=== PATIENT | male | born 1970 | race Caucasian/White ===

== ENCOUNTER 2017-02-07 16:38 | Emergency (ER) | payer SELFPAY ==
[2017-02-07] MEDS ORDERED: NORMAL SALINE 1000 ML 1,000 ML IV ONE (17:31)
--- NOTE | 2017-02-07 17:34 | ER Document Report ---
ED Medical Screen (RME) - General Chief Complaint: Near Syncope Stated Complaint: BLOOD PRESSURE PROBLEM Time Seen by Provider: 02/07/17 17:24 Notes: Patient is a 46-year-old male, past medical history diabetes, neuropathy, presents with 2 hours of slurred speech and headache while on the phone with his that started at 15:15. Arrival to the emergency room, the patient's speech has returned back to normal. In addition, he has had several weeks of orthostasis feeling lightheaded when he stands. He has seen his epic ambulatory specialists for this, but he is still being worked up for causes. Patient denies blurry vision, focal weakness, new numbness, chest pain, shortness of breath, nausea, vomiting or back pain. PE: RRR. CTAB. No nystagmus. 5/5 strength in all 4 extremities. I have greeted and performed a rapid initial assessment of this patient. A comprehensive ED assessment and evaluation of the patient, analysis of test results and completion of the medical decision making process will be conducted by additional ED providers. TRAVEL OUTSIDE OF THE [place] IN LAST 30 DAYS: No - Related Data Allergies/Adverse Reactions: No Known Allergies Allergy (Verified 03/10/15 11:23) Past Medical History - Past Medical History Cardiac Medical History: Reports: Hx Hypercholesterolemia Endocrine Medical History: Reports: Hx Diabetes Mellitus Type 2 Renal/ Medical History: Denies: Hx Peritoneal Dialysis GI Medical History: Reports: Hx Gastroesophageal Reflux Disease Past Surgical History: Reports: Hx Orthopedic Surgery - back, left knee - Immunizations Hx Diphtheria, Pertussis, Tetanus Vaccination: Yes Physical Exam - Vital signs Vitals: Temp Pulse Resp BP Pulse Ox 98.0 F 90 19 114/80 96 02/07/17 16:42 02/07/17 16:42 02/07/17 16:42 02/07/17 16:42 02/07/17 16:42 Course - Vital Signs Vital signs: Temp Pulse Resp BP Pulse Ox 98.0 F 90 19 114/80 96 02/07/17 16:42 02/07/17 16:42 02/07/17 16:42 02/07/17 16:42 02/07/17 16:42
[2017-02-07 18:05] LABS: ABSOLUTE EOSINOPHILS # (AUTO) 0.1 10^3/uL (0.0-0.6); ABSOLUTE LYMPHOCYTES (AUTO) 1.7 10^3/uL (0.5-4.7); ABSOLUTE MONOCYTES (AUTO) 0.6 10^3/uL (0.1-1.4); ABSOLUTE NEUT (AUTO) 4.4 10^3/uL (1.7-8.2); BASOPHILS % (AUTO) 0.3 % (0-2); EOSINOPHILS % (AUTO) 1.2 % (0-6); HEMATOCRIT 36.9 % (37.9-51.0); HEMOGLOBIN 12.9 g/dL (13.5-17.0); HGB HCT DIFFERENCE 1.8; LYMPHOCYTES % (AUTO) 24.7 % (13-45); MEAN CORPUSCULAR HEMOGLOBIN 28.2 pg (27.0-33.4); MEAN CORPUSCULAR VOLUME 81 fl (80-97); MONOCYTES % (AUTO) 8.9 % (3-13); RED BLOOD COUNT 4.58 10^6/uL (4.35-5.55); RED CELL DISTRIBUTION WIDTH 12.7 % (11.5-14.0); SEGMENTED NEUTROPHILS % (AUTO) 64.9 % (42-78); WHITE BLOOD COUNT 6.8 10^3/uL (4.0-10.5)
--- NOTE | 2017-02-07 18:07 | RADIOLOGY REPORT (SQ) ---
EXAM DESCRIPTION: CT HEAD WITHOUT COMPLETED DATE/TIME: 02/07/2017 5:57 pm REASON FOR STUDY: slurred speech COMPARISON: None. TECHNIQUE: Axial images acquired through the brain without intravenous contrast. Images reviewed wi th bone, brain and subdural windows. Images stored on PACS. All CT scanners at this facility use dose modulation, iterative reconstruction, and/or weight based d osing when appropriate to reduce radiation dose to as low as reasonably achievable (ALARA). [facility]: Dose Right [facility]: CareDose [facility]: Dose Right [facility]: Teradose 4D [facility]: Smart OOTU RADIATION DOSE: Up-to-date CT equipment and radiation dose reduction techniques were employed. CTDIv ol: 64.6 mGy. DLP: 1034 mGy-cm. mGy. LIMITATIONS: None. FINDINGS: VENTRICLES: Normal size and contour. CEREBRUM: No masses. No hemorrhage. No midline shift. Normal mix/white matter differentiation. N o evidence for acute infarction. CEREBELLUM: No masses. No hemorrhage. No alteration of density. No evidence for acute infarction. EXTRAAXIAL SPACES: No fluid collections. No masses. ORBITS AND GLOBE: No intra- or extraconal masses. Normal contour of globe without masses. CALVARIUM: No fracture. PARANASAL SINUSES: Mucosal thickening of the inferior left maxillary sinus. The remainder the parana glenys sinuses are clear. SOFT TISSUES: No mass or hematoma. OTHER: No other significant finding. IMPRESSION: NORMAL BRAIN CT WITHOUT CONTRAST. TECHNICAL DOCUMENTATION: JOB ID: [id number] Quality ID # [id number]: Final reports with documentation of one or more dose reduction techniques (e.g., Au tomated exposure control, adjustment of the mA and/or kV according to patient size, use of iterative reconstruction technique) 2010 [employer]- All Rights Reserved
[2017-02-07 18:24] LABS: ALANINE AMINOTRANSFERASE 37 U/L (21-72); ALBUMIN 4.2 g/dL (3.5-5.0); ALCOHOL < 10 mg/dL (NONE DETECTED); ALKALINE PHOSPHATASE 100 U/L (38-126); ANION GAP 12 (5-19); ASPARTATE AMINO TRANSFERASE 24 U/L (17-59); BILIRUBIN,DIRECT 0.3 mg/dL (0.0-0.4); BILIRUBIN,TOTAL 0.7 mg/dL (0.2-1.3); BLOOD UREA NITROGEN 28 mg/dL (7-20); CALCIUM 9.8 mg/dL (8.4-10.2); CARBON DIOXIDE 37 mmol/L (22-30); CHLORIDE 89 mmol/L (98-107); CREATINE KINASE 137 U/L (55-170); CREATININE RESULT 1.57 mg/dL (0.52-1.25); GLUCOSE 341 mg/dL (75-110); LIPASE 45.2 U/L (23-300); POTASSIUM 3.6 mmol/L (3.6-5.0); SODIUM 137.5 mmol/L (137-145)
--- NOTE | 2017-02-07 18:30 | RADIOLOGY REPORT (SQ) ---
EXAM DESCRIPTION: CHEST SINGLE VIEW COMPLETED DATE/TIME: 02/07/2017 6:20 pm REASON FOR STUDY: chest pain COMPARISON: 03/10/2015 EXAM PARAMETERS: NUMBER OF VIEWS: One view. TECHNIQUE: Single frontal radiographic view of the chest acquired. RADIATION DOSE: NA LIMITATIONS: None. FINDINGS: LUNGS AND PLEURA: No opacities, masses or pneumothorax. No pleural effusion. MEDIASTINUM AND HILAR STRUCTURES: No masses. Contour normal. HEART AND VASCULAR STRUCTURES: Heart normal in size. Normal vasculature. BONES: No acute findings. HARDWARE: None in the chest. OTHER: No other significant finding. IMPRESSION: NO ACUTE RADIOGRAPHIC FINDING IN THE CHEST. TECHNICAL DOCUMENTATION: JOB ID: [id number]
[2017-02-07 18:35] LABS: TROPONIN I 0.013 ng/mL
[2017-02-07] MEDS ORDERED: NORMAL SALINE 1000 ML 1,000 ML IV PRN (18:58)
--- NOTE | 2017-02-07 19:00 | ER Document Report ---
ED General - General Chief Complaint: Near Syncope Stated Complaint: BLOOD PRESSURE PROBLEM Time Seen by Provider: 02/07/17 17:24 Mode of Arrival: Stretcher Information source: Patient TRAVEL OUTSIDE OF THE [place] IN LAST 30 DAYS: No - HPI Patient complains to provider of: Low blood pressure, near syncope Onset: Just prior to arrival Onset/Duration: Sudden, Intermittent Quality of pain: No pain Exacerbated by: Standing Relieved by: Denies Similar symptoms previously: Yes Recently seen / treated by doctor: Yes Notes: Patient is a 46-year-old male with history of diabetes, depression and high cholesterol, who presents to the emergency room complaining of dizziness and near syncope related to low blood pressure, reports the symptoms occur when he changes position such as lying down or sitting and going to a standing position , he states this is been going on intermittently for the past few years, he has been worked up by several providers previously without in definitive answer to why this occurs, he had a cardiac catheterization approximately 1 month ago which he was told was normal, he states he drinks water throughout the day and feels as though he is well hydrated, he denies any pain or symptoms at present time except for some mild dizziness which continues to worsen when he stands up - Related Data Allergies/Adverse Reactions: No Known Allergies Allergy (Verified 03/10/15 11:23) Past Medical History - General Information source: Patient - Social History Smoking Status: Never Smoker Frequency of alcohol use: Occasional Family History: Reviewed & Not Pertinent Patient has suicidal ideation: No Patient has homicidal ideation: No - Past Medical History Cardiac Medical History: Reports: Hx Hypercholesterolemia Endocrine Medical History: Reports: Hx Diabetes Mellitus Type 2 Renal/ Medical History: Denies: Hx Peritoneal Dialysis GI Medical History: Reports: Hx Gastroesophageal Reflux Disease Past Surgical History: Reports: Hx Orthopedic Surgery - back, left knee - Immunizations Hx Diphtheria, Pertussis, Tetanus Vaccination: Yes Review of Systems - Review of Systems Constitutional: No symptoms reported EENT: No symptoms reported Cardiovascular: See HPI Respiratory: No symptoms reported Gastrointestinal: No symptoms reported Genitourinary: No symptoms reported Male Genitourinary: No symptoms reported Musculoskeletal: No symptoms reported Skin: No symptoms reported Hematologic/Lymphatic: No symptoms reported Neurological/Psychological: No symptoms reported -: Yes All other systems reviewed and negative Physical Exam - Vital signs Vitals: Temp Pulse Resp BP Pulse Ox 98.0 F 90 19 114/80 96 02/07/17 16:42 02/07/17 16:42 02/07/17 16:42 02/07/17 16:42 02/07/17 16:42 Interpretation: Hypotensive - General General appearance: Appears well, Alert - HEENT Head: Normocephalic, Atraumatic Eyes: Normal Pupils: PERRL - Respiratory Respiratory status: No respiratory distress Chest status: Nontender Breath sounds: Normal Chest palpation: Normal - Cardiovascular Rhythm: Regular Heart sounds: Normal auscultation Murmur: No - Abdominal Inspection: Normal Distension: No distension Bowel sounds: Normal Tenderness: Nontender Organomegaly: No organomegaly - Back Back: Normal, Nontender - Extremities General upper extremity: Normal inspection, Nontender, Normal color, Normal ROM , Normal temperature General lower extremity: Normal inspection, Nontender, Normal color, Normal ROM , Normal temperature, Normal weight bearing. No: Dominick's sign - Neurological Neuro grossly intact: Yes Cognition: Normal Orientation: AAOx4 [place] Coma Scale Eye Opening: Spontaneous Al Coma Scale Verbal: Oriented Al Coma Scale Motor: Obeys Commands [place] Coma Scale Total: 15 Speech: Normal Motor strength normal: LUE, RUE, LLE, RLE Sensory: Normal - Psychological Associated symptoms: Normal affect, Normal mood - Skin Skin Temperature: Warm Skin Moisture: Dry Skin Color: Normal Course - Re-evaluation Re-evalutation: 02/07/17 19:50 Patient reports feeling much better after 2 L of IV fluids and dinner, lab and imaging findings were discussed with him at bedside which are fairly unremarkable except for mild dehydration, patient will be discharged with instructions for follow-up and advised to return if any additional concerns, patient acknowledges understanding and agreement with this plan - Vital Signs Vital signs: Temp Pulse Resp BP Pulse Ox 98.0 F 87 13 172/94 H 100 02/07/17 16:42 02/07/17 18:13 02/07/17 19:08 02/07/17 19:08 02/07/17 19:08 - Laboratory Result Diagrams: 02/07/17 17:48 02/07/17 17:48 Laboratory results interpreted by me: 02/07/17 02/07/17 02/07/17 17:48 17:48 17:48 Hgb 12.9 L Hct 36.9 L Chloride 89 L Carbon Dioxide 37 H BUN 28 H Creatinine 1.57 H Est GFR ( Amer) 57 L Est GFR (Non-Af Amer) 47 L Glucose 341 H NT-Pro-B Natriuret Pep 411 H - Diagnostic Test Radiology reviewed: Image reviewed, Reports reviewed - EKG Interpretation by Me EKG shows normal: Sinus rhythm Rate: Normal Rhythm: NSR Discharge - Discharge Clinical Impression: Near syncope Condition: Stable Disposition: HOME, SELF-CARE Instructions: Near Syncopal Episode ([facility]), Dehydration ([facility]) Additional Instructions: Follow up with your primary care provider in one to 2 days. Return to the emergency room immediately if symptoms worsen or any additional concerns.
[2017-02-07 20:40] VITALS: BP 140/81
--- NOTE | 2017-02-07 21:22 | EKG REPORT ---
SEVERITY:- BORDERLINE ECG - SINUS RHYTHM BORDERLINE T WAVE ABNORMALITIES : Confirmed by: Stephanie Wilson 07-Feb-2017 21:22:06
== END 2017-02-07 20:35 | disposition home or self-care (01) ==
LOC: ER 16:38
DX: R55 Syncope and collapse (principal); R03.0 Elevated blood-pressure reading, without diagnosis of hypertension; R42 Dizziness and giddiness
CPT/HCPCS: 93005; 99285; 96360; 36415; 80307; 82550; 83690; 85025; 80053; 84484; 83880; 71010; 70450; 93010; J7030

== ENCOUNTER 2017-03-19 13:10 | Inpatient (IN) | payer SELFPAY ==
--- NOTE | 2017-03-19 14:31 | ER Document Report ---
ED Dizziness/Weakness - General Chief Complaint: Weakness Stated Complaint: WEAKNESS,BODY PAIN Time Seen by Provider: 03/19/17 14:14 Notes: Patient is a 46-year-old male with past medical history of insulin-dependent diabetes who presents today with multiple complaints. Patient believes he has a right second toe infection that he states has been progressing for the last week and a half. Patient also states he had times for the last 2 years has felt "lightheaded". He states he is always told that it is secondary to his diabetes and dehydration. 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 Patient denies any headache, neck pain, chest pain, abdominal pain, or focal weakness or numbness. He states some mild nausea without vomiting. TRAVEL OUTSIDE OF THE [place] IN LAST 30 DAYS: No - HPI Patient complains to provider of: Dizziness, Other - See above Onset/Duration: Gradual Quality of pain: No pain Severity: Moderate Pain Level: 2 Associated symptoms: Other - See above Baseline gait: Walks w/o assistance - Related Data Allergies/Adverse Reactions: No Known Allergies Allergy (Verified 03/19/17 13:15) Past Medical History - General Information source: Patient - Social History Smoking Status: Unknown if Ever Smoked Cigarette use (# per day): No Chew tobacco use (# tins/day): No Smoking Education Provided: No Frequency of alcohol use: None Family History: Reviewed & Not Pertinent - Past Medical History Cardiac Medical History: Reports: Hx Hypercholesterolemia Endocrine Medical History: Reports: Hx Diabetes Mellitus Type 2 Renal/ Medical History: Denies: Hx Peritoneal Dialysis GI Medical History: Reports: Hx Gastroesophageal Reflux Disease Psychiatric Medical History: Reports: Hx Depression Past Surgical History: Reports: Hx Orthopedic Surgery - back, left knee - Immunizations Hx Diphtheria, Pertussis, Tetanus Vaccination: Yes Review of Systems - Review of Systems Constitutional: denies: Fever EENT: denies: Eye discharge, Nose discharge Cardiovascular: Dizziness. denies: Chest pain, Palpitations, Syncope Respiratory: denies: Short of breath Gastrointestinal: denies: Vomiting Genitourinary: denies: Dysuria Musculoskeletal: denies: Leg swelling Skin: Other - no hives. denies: Rash Neurological/Psychological: Other - no slurred speech -: Yes All other systems reviewed and negative Physical Exam - Vital signs Vitals: Temp Pulse Resp BP Pulse Ox 99.1 F 94 16 124/75 97 03/19/17 13:14 03/19/17 13:14 03/19/17 13:14 03/19/17 13:14 03/19/17 13:14 Interpretation: Normal Notes: Reviewed vital signs and nursing note as charted by RN. CONSTITUTIONAL: Alert and oriented and responds appropriately to questions. Well -appearing; well-nourished HEAD: Normocephalic; atraumatic EYES: PERRL; Conjunctivae clear, sclerae non-icteric ENT: Normal nose; no rhinorrhea; moist mucous membranes; pharynx without lesions noted NECK: Supple without meningismus; bruits; non-tender; no cervical lymphadenopathy, no masses CARD: Regular rate and rhythm; no murmurs, no clicks, no rubs, no gallops; symmetric distal pulses RESP: Normal chest excursion without splinting or tachypnea; breath sounds clear and equal bilaterally ABD/GI: Normal bowel sounds; non-distended; she has a palpable mass to his right mid abdomen he states from a previous hernia surgery. Soft, non-tender to palpation of all 4 quadrants of the abdomen, no rebound, no guarding; no palpable organomegaly or masses BACK: The back appears normal and is non-tender to palpation, there is no CVA tenderness EXT: Normal ROM in all joints; non-tender to palpation; no cyanosis, no effusions, no edema SKIN: Patient has what appears to be cellulitis and swelling of his right foot second great toe with some erythema extending to the midfoot dorsally. There is no plantar erythema or ecchymosis. Excellent dorsalis pedis and posterior tibialis pulses. Patient has poor proprioception to bilateral feet in all 5 toes. NEURO: CN II through XII are intact. Normal cerebellar examination. No nystagmus noted. 5 out of 5 bilateral upper and lower extremity strength with sensation intact to light touch PSYCH: The patient's mood and manner are appropriate. Grooming and personal hygiene are appropriate. Course - Re-evaluation Re-evalutation: 03/19/17 14:29 Given the above history and physical examination I will obtain blood cultures, basic labs, Accu-Chek, cardiac panel, EKG, and x-ray of the right foot. I am concerned about possible diabetic foot infection causing some mild lightheadedness. I also want to evaluate the patient's hydration status and kidney function. 03/19/17 15:35 EKG shows a height of 88, normal sinus rhythm, normal axis, no obvious ST elevation or depression 03/19/17 15:42 Labs as recorded. Glucose 336. X-ray of the right foot shows an osteomyelitis of the second toe. I have paged him consult with orthopedics. I will start the patient on vancomycin and clindamycin and admit the patient to the hospitalist. - Vital Signs Vital signs: Temp Pulse Resp BP Pulse Ox 99.1 F 94 16 124/75 97 03/19/17 13:14 03/19/17 13:14 03/19/17 13:14 03/19/17 13:14 03/19/17 13:14 - Laboratory Result Diagrams: 03/19/17 14:30 03/19/17 14:30 Laboratory results interpreted by me: 03/19/17 03/19/17 03/19/17 14:30 14:30 15:00 RBC 3.84 L Hgb 10.9 L Hct 31.3 L Sodium 135.0 L BUN 22 H Glucose 344 H POC Glucose 336 H AST 15 L Discharge - Discharge Clinical Impression: Osteomyelitis of toe of right foot, Hyperglycemia Condition: Fair Disposition: ADMITTED INPATIENT Admitting Provider: Hospitalist Unit Admitted: Medical Floor
[2017-03-19 14:44] LABS: ABSOLUTE LYMPHOCYTES (AUTO) 1.1 10^3/uL (0.5-4.7); ABSOLUTE MONOCYTES (AUTO) 0.9 10^3/uL (0.1-1.4); ABSOLUTE NEUT (AUTO) 6.7 10^3/uL (1.7-8.2); BASOPHILS % (AUTO) 0.2 % (0-2); EOSINOPHILS % (AUTO) 0.3 % (0-6); HEMATOCRIT 31.3 % (37.9-51.0); HEMOGLOBIN 10.9 g/dL (13.5-17.0); HGB HCT DIFFERENCE 1.4; MEAN CORPUSCULAR HEMOGLOBIN 28.4 pg (27.0-33.4); MEAN CORPUSCULAR HGB CONC 34.9 g/dL (32.0-36.0); MEAN CORPUSCULAR VOLUME 82 fl (80-97); MONOCYTES % (AUTO) 9.9 % (3-13); RED BLOOD COUNT 3.84 10^6/uL (4.35-5.55); RED CELL DISTRIBUTION WIDTH 12.7 % (11.5-14.0); SEGMENTED NEUTROPHILS % (AUTO) 76.6 % (42-78); WHITE BLOOD COUNT 8.8 10^3/uL (4.0-10.5)
[2017-03-19 14:57] LABS: ALANINE AMINOTRANSFERASE 21 U/L (21-72); ALBUMIN 3.7 g/dL (3.5-5.0); ALKALINE PHOSPHATASE 101 U/L (38-126); ANION GAP 11 (5-19); ASPARTATE AMINO TRANSFERASE 15 U/L (17-59); BILIRUBIN,DIRECT 0.4 mg/dL (0.0-0.4); BILIRUBIN,TOTAL 0.7 mg/dL (0.2-1.3); BLOOD UREA NITROGEN 22 mg/dL (7-20); CARBON DIOXIDE 25 mmol/L (22-30); CHLORIDE 99 mmol/L (98-107); CREATININE RESULT 0.98 mg/dL (0.52-1.25); GLUCOSE 344 mg/dL (75-110); POTASSIUM 4.5 mmol/L (3.6-5.0); TOTAL PROTEIN 6.5 g/dL (6.3-8.2)
--- NOTE | 2017-03-19 15:25 | RADIOLOGY REPORT (SQ) ---
EXAM DESCRIPTION: FOOT RIGHT COMPLETE COMPLETED DATE/TIME: 03/19/2017 3:12 pm REASON FOR STUDY: Bed 7, second toe infection COMPARISON: 11/13/2013. NUMBER OF VIEWS: Three views. TECHNIQUE: AP, lateral and oblique radiographic images acquired of the right foot. LIMITATIONS: None. FINDINGS: MINERALIZATION: Normal. BONES: There are destructive changes involving the distal phalanx of the 2nd toe. The remainder the bony structures are intact. JOINTS: No effusions. SOFT TISSUES: Soft tissue swelling in the distal 2nd toe. No foreign body. OTHER: No other significant finding. IMPRESSION: SOFT TISSUE SWELLING IN THE DISTAL 2ND TOE WITH DESTRUCTIVE CHANGES IN THE DISTAL PHALAN X. FINDINGS ARE CONSISTENT WITH OSTEOMYELITIS. TECHNICAL DOCUMENTATION: JOB ID: [id number] [employer]- All Rights Reserved
[2017-03-19] MEDS ORDERED: VANCOMYCIN HCL INJ 1000 MG VIAL IV ONE (15:44)
[2017-03-19] MEDS ORDERED: CLINDAMYCIN 600 MG/D5W RTU 50 ML IV ONE (15:44)
[2017-03-19] MEDS ORDERED: ONDANSETRON HCL INJ/PF 4 MG/2 ML SDV IV PRN (15:45)
[2017-03-19] MEDS ORDERED: OXYCODONE-ACETAMINOPHEN 5-325 MG TABLET PO PRN (15:45)
[2017-03-19] MEDS ORDERED: ACETAMINOPHEN 325 MG TABLET PO PRN (15:45)
[2017-03-19] MEDS ORDERED: NORMAL SALINE 1000 ML 1,000 ML IV ONE (15:48)
[2017-03-19] MEDS ORDERED: DEXTROSE 40% GEL 15 GM TUBE PO PRN ×4 (15:52→17:39)
[2017-03-19] MEDS ORDERED: GLUCAGON,HUMAN RECOMB 1 MG INJ IM PRN (15:52)
[2017-03-19] MEDS ORDERED: DEXTROSE 50%-WATER 25 GM/50 ML DISP.SYRIN IV PRN ×4 (15:52→17:39)
[2017-03-19] MEDS ORDERED: VANCOMYCIN HCL 0 MG in DEXTROSE 5%-WATER 250 ML IV NR (16:00)
--- NOTE | 2017-03-19 16:59 | PDOC H&P ---
History of Present Illness Admission Date/PCP: KASIE REESE MD Patient complains of: Right first and 2nd toe redness and swelling History of Present Illness: TOMÁS STANTON is a 46 year old male with past medical history of diabetes mellitus type 1, peripheral neuropathy, and vertigo; presents with increasing redness and swelling of the right 1st and 2nd toes that is worsening. He admits to chills over the last 2 days and not feeling well. He denies any pain. He states he has neuropathy so he is having no pain. He has not taken his temperature at home. He denies any prior diabetic foot infections. He states he has had increasing lightheadedness over the last 2 days. He thought he was dehydrated. 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 He denies any other symptoms. Past Medical History Cardiac Medical History: Reports: Hyperlipidema Pulmonary Medical History: Reports: Asthma EENT Medical History: Reports: None Endocrine Medical History: Reports: Diabetes Mellitus Type 2 Malignancy Medical History: Reports: None GI Medical History: Reports: Gastroesophageal Reflux Disease Musculoskeltal Medical History: Reports: None Skin Medical History: Reports: None Psychiatric Medical History: Reports: Depression Traumatic Medical History: Reports: None Hematology: Reports: None Infectious Medical History: Reports: None Past Surgical History Past Surgical History: Reports: Orthopedic Surgery - back, left knee Social History Information Source: Patient Lives with: Family Smoking Status: Never Smoker Frequency of Alcohol Use: Rare Hx Recreational Drug Use: No Hx Prescription Drug Abuse: No - Advance Directive Resuscitation Status: Full Code Family History Family History: DM, Hypertension Parental Family History Reviewed: Yes Children Family History Reviewed: Yes Sibling(s) Family History Reviewed.: Yes Medication/Allergy Allergies/Adverse Reactions: No Known Allergies Allergy (Verified 03/19/17 13:15) Review of Systems Constitutional: PRESENT: chills, weakness. ABSENT: fever(s), headache(s), weight gain, weight loss Eyes: ABSENT: visual disturbances Ears: ABSENT: hearing changes Cardiovascular: ABSENT: chest pain, dyspnea on exertion, edema, orthropnea, palpitations Respiratory: ABSENT: cough, hemoptysis Gastrointestinal: ABSENT: abdominal pain, constipation, diarrhea, hematemesis, hematochezia, nausea, vomiting Genitourinary: ABSENT: dysuria, hematuria Musculoskeletal: ABSENT: joint swelling Integumentary: PRESENT: erythema, wounds - Right first and second toes Neurological: PRESENT: numbness, paresthesias, vertigo, weakness. ABSENT: abnormal gait, abnormal speech, confusion, dizziness, focal weakness, syncope Psychiatric: ABSENT: anxiety, depression, homidical ideation, suicidal ideation Endocrine: ABSENT: cold intolerance, heat intolerance, polydipsia, polyuria Hematologic/Lymphatic: ABSENT: easy bleeding, easy bruising Physical Exam Vital Signs: Temp Pulse Resp BP Pulse Ox 99.1 F 94 16 124/75 97 03/19/17 13:14 03/19/17 13:14 03/19/17 13:14 03/19/17 13:14 03/19/17 13:14 Intake & Output 03/18/17 03/19/17 03/20/17 06:59 06:59 06:59 Weight 89.6 kg General appearance: PRESENT: no acute distress, well-developed, well-nourished Head exam: PRESENT: atraumatic, normocephalic Eye exam: PRESENT: conjunctiva pink, EOMI, PERRLA. ABSENT: scleral icterus Ear exam: PRESENT: normal external ear exam Mouth exam: PRESENT: moist, tongue midline Neck exam: ABSENT: carotid bruit, JVD, lymphadenopathy, thyromegaly Respiratory exam: PRESENT: clear to auscultation lisa. ABSENT: rales, rhonchi, wheezes Cardiovascular exam: PRESENT: RRR. ABSENT: diastolic murmur, rubs, systolic murmur Pulses: PRESENT: normal carotid pulses, normal radial pulses Vascular exam: PRESENT: normal capillary refill GI/Abdominal exam: PRESENT: normal bowel sounds, soft. ABSENT: distended, guarding, mass, organolmegaly, rebound, tenderness Rectal exam: PRESENT: deferred Extremities exam: PRESENT: full ROM, tenderness - right first and second toes Musculoskeletal exam: PRESENT: ambulatory, deformity, tenderness Neurological exam: PRESENT: alert, awake, oriented to person, oriented to place , oriented to time, oriented to situation, CN II-XII grossly intact, motor sensory deficit - peripheral neuropathy with decreased sensation in both feet Psychiatric exam: PRESENT: appropriate affect, normal mood. ABSENT: homicidal ideation, suicidal ideation Skin exam: PRESENT: abrasion - multiple healing wounds bilateral lower extremities, erythema, warm Results Laboratory Results: 03/19/17 14:30 03/19/17 14:30 03/19/17 03/19/17 14:30 14:30 WBC 8.8 RBC 3.84 L Hgb 10.9 L Hct 31.3 L MCV 82 MCH 28.4 MCHC 34.9 RDW 12.7 Plt Count 193 Seg Neutrophils % 76.6 Lymphocytes % 13.0 Monocytes % 9.9 Eosinophils % 0.3 Basophils % 0.2 Absolute Neutrophils 6.7 Absolute Lymphocytes 1.1 Absolute Monocytes 0.9 Absolute Eosinophils 0.0 Absolute Basophils 0.0 Sodium 135.0 L Potassium 4.5 Chloride 99 Carbon Dioxide 25 Anion Gap 11 BUN 22 H Creatinine 0.98 Est GFR ( Amer) > 60 Est GFR (Non-Af Amer) > 60 Glucose 344 H Calcium 9.0 Total Bilirubin 0.7 AST 15 L ALT 21 Alkaline Phosphatase 101 Total Protein 6.5 Albumin 3.7 03/19/17 14:30 Troponin I < 0.012 Impressions: Foot X-Ray 03/19/17 14:26 IMPRESSION: SOFT TISSUE SWELLING IN THE DISTAL 2ND TOE WITH DESTRUCTIVE CHANGES IN THE DISTAL PHALANX. FINDINGS ARE CONSISTENT WITH OSTEOMYELITIS. Assessment & Plan - Diagnosis (1) Toe osteomyelitis, right Is this a current diagnosis for this admission?: YesPlan: Right foot xray shows osteomyeltis of the 2nd toe, blood cultures x 2 obtained, started on Vanco and Zosyn. ORthopedics referral (2) Diabetes mellitus type 2 in nonobese Is this a current diagnosis for this admission?: YesPlan: Continue insulin and sliding scale coverage (3) Peripheral neuropathy Qualifiers: Peripheral neuropathy type: polyneuropathy associated with underlying disease Qualified Code(s): G63 - Polyneuropathy in diseases classified elsewhere Is this a current diagnosis for this admission?: Yes - Time Time Spent: 50 to 70 Minutes Critical Time spent with patient: 25-34 minutes Medications reviewed and adjusted accordingly: Yes
[2017-03-19] MEDS ORDERED: VANCOMYCIN HCL 1,250 MG in DEXTROSE 5%-WATER 250 ML IV ONE (17:00)
[2017-03-19] MEDS: DOCUSATE SODIUM 100 MG CAPSULE PO SCH (17:13)
[2017-03-19] MEDS ORDERED: GLUCAGON,HUMAN RECOMB 1 MG INJ SUBCUT PRN (17:39)
--- NOTE | 2017-03-19 17:45 | PDOC CONSULTATION ---
History of Present Illness Admission Date/PCP: 03/19/17 15:45 KASIE REESE MD History of Present Illness: TOMÁS STANTON is a 46 year old male with past medical history of diabetes mellitus type 1, peripheral neuropathy, and vertigo; He admits to chills over the last 2 days and not feeling well. He denies any pain. He states he has neuropathy so he is having no pain. He has not taken his temperature at home. Patient states started a few weeks ago when he was cutting his toenails. It then slowly began increasing in redness and swelling over the past 48 hours. Has had previous left second toe amputation performed for similar issue. Past Medical History Cardiac Medical History: Reports: Hyperlipidema Pulmonary Medical History: Reports: Asthma EENT Medical History: Reports: None Endocrine Medical History: Reports: Diabetes Mellitus Type 2 Malignancy Medical History: Reports: None GI Medical History: Reports: Gastroesophageal Reflux Disease Musculoskeltal Medical History: Reports: None Skin Medical History: Reports: None Psychiatric Medical History: Reports: Depression Traumatic Medical History: Reports: None Hematology: Reports: None Infectious Medical History: Reports: None Past Surgical History Past Surgical History: Reports: Orthopedic Surgery - back, left knee Social History Lives with: Family Smoking Status: Never Smoker Frequency of Alcohol Use: Rare Hx Recreational Drug Use: No Hx Prescription Drug Abuse: No - Advance Directive Resuscitation Status: Full Code Family History Family History: DM, Hypertension Parental Family History Reviewed: No Children Family History Reviewed: No Sibling(s) Family History Reviewed.: No Medication/Allergy Home Medications: Insulin Glargine,Hum.rec.anlog [Toudamariso Solostar] 50 unit SQ DAILY 03/19/17 Metformin HCl [Glucophage] 1,000 mg PO Q12 03/19/17 Sertraline HCl [Zoloft 50 mg Tablet] 100 mg PO Q12 03/19/17 Allergies/Adverse Reactions: No Known Allergies Allergy (Verified 03/19/17 13:15) Review of Systems Constitutional: PRESENT: chills, fever(s). ABSENT: headache(s), weight gain, weight loss Eyes: ABSENT: visual disturbances Ears: ABSENT: hearing changes Cardiovascular: ABSENT: chest pain, dyspnea on exertion, edema, orthropnea, palpitations Respiratory: ABSENT: cough, hemoptysis Gastrointestinal: ABSENT: abdominal pain, constipation, diarrhea, hematemesis, hematochezia, nausea, vomiting Genitourinary: ABSENT: dysuria, hematuria Musculoskeletal: PRESENT: as per HPI Integumentary: ABSENT: rash, wounds Neurological: ABSENT: abnormal gait, abnormal speech, confusion, dizziness, focal weakness, syncope Psychiatric: ABSENT: anxiety, depression, homidical ideation, suicidal ideation Endocrine: ABSENT: cold intolerance, heat intolerance, menstrual abnormalities, polydipsia, polyuria Hematologic/Lymphatic: ABSENT: easy bleeding, easy bruising, lymphadenopathy Physical Exam Vital Signs: Temp Pulse Resp BP Pulse Ox 99.1 F 94 16 124/75 97 03/19/17 13:14 03/19/17 13:14 03/19/17 13:14 03/19/17 13:14 03/19/17 13:14 General appearance: PRESENT: no acute distress, well-developed, well-nourished Head exam: PRESENT: atraumatic, normocephalic Eye exam: PRESENT: conjunctiva pink, EOMI, PERRLA. ABSENT: scleral icterus Ear exam: PRESENT: normal external ear exam Mouth exam: PRESENT: moist, tongue midline Neck exam: PRESENT: full ROM. ABSENT: carotid bruit, JVD, lymphadenopathy, thyromegaly Cardiovascular exam: PRESENT: RRR. ABSENT: diastolic murmur, rubs, systolic murmur Pulses: PRESENT: normal dorsalis pedis pul, +2 pedal pulses bilateral Vascular exam: PRESENT: normal capillary refill GI/Abdominal exam: PRESENT: normal bowel sounds, soft. ABSENT: distended, guarding, mass, organolmegaly, rebound, tenderness Rectal exam: PRESENT: deferred Musculoskeletal exam: PRESENT: other - Right foot: Significant redness and swelling of the second toe to the level of the MP joint. Mild streaking proximally along the dorsum of the foot. No plantar erythema. No streaking erythema proximal to the ankle joint. Ulceration on the medial aspect of the great toe at the MCP joint no evidence of erythema or drainage. No bone exposed. Neurological exam: PRESENT: alert, awake, oriented to person, oriented to place , oriented to time, oriented to situation, CN II-XII grossly intact. ABSENT: motor sensory deficit Psychiatric exam: PRESENT: appropriate affect, normal mood. ABSENT: homicidal ideation, suicidal ideation Skin exam: PRESENT: dry, intact, warm. ABSENT: cyanosis, rash Results Impressions: Foot X-Ray 03/19/17 14:26 IMPRESSION: SOFT TISSUE SWELLING IN THE DISTAL 2ND TOE WITH DESTRUCTIVE CHANGES IN THE DISTAL PHALANX. FINDINGS ARE CONSISTENT WITH OSTEOMYELITIS. Status: Image reviewed by me - I have reviewed patient's radiographs which demonstrate significant osteolytic changes along the distal phalanx of the second toe. No proximal osseous changes appreciated. Assessment & Plan - Diagnosis (1) Toe osteomyelitis, right Is this a current diagnosis for this admission?: YesPlan: Patient has evidence of second toe osteomyelitis. At this point I recommended MRI with contrast to delineate extension of the osteomyelitis. if the osteomyelitis spreads in a proximal to the MP joint may require a resection but according to radiographs and likely is limited to the middle phalanx and distal phalanx. I have recommended operative intervention despite MRI findings which would at least include PIP joint disarticulation. I have explained risks and benefits of the procedure including increasing pain, postoperative infection requiring repeat operative intervention and possible more proximal amputation, postoperative stiffness, decreased ambulatory status and any unforeseen complication. Patient has verbalized understanding consented for the procedure.
--- NOTE | 2017-03-19 17:50 | EKG REPORT ---
SEVERITY:- NORMAL ECG - SINUS RHYTHM : Confirmed by: Stephanie Wilson 19-Mar-2017 17:50:11
[2017-03-19] MEDS ORDERED: INSULIN LISPRO 100 UNIT/ML 3 ML VIAL SUBCUT SCH (18:00)
[2017-03-19] MEDS: PIPERACILLIN SODIUM/TAZOBACTAM 3.375 GM in NORMAL SALINE 100 ML IV SCH (20:12)
[2017-03-19] MEDS ORDERED: CLINDAMYCIN 600 MG/D5W RTU 50 ML IV SCH (22:00)
[2017-03-19] MEDS: HEPARIN SOD (PORCINE) 5,000 UNIT/ML 1 ML SYRINGE SUBCUT SCH (22:29)
[2017-03-19] MEDS: INSULIN LISPRO 100 UNIT/ML 3 ML VIAL SUBCUT PRN (22:29)
[2017-03-20] MEDS: ZOLPIDEM TARTRATE 5 MG TABLET PO PRN ×2 (00:37→21:56)
[2017-03-20] MEDS: PIPERACILLIN SODIUM/TAZOBACTAM 3.375 GM in NORMAL SALINE 100 ML IV SCH ×4 (00:38→17:00)
--- NOTE | 2017-03-20 00:56 | RADIOLOGY REPORT (SQ) ---
EXAM DESCRIPTION: MRI RT LOWER EXTREMITY COMBO COMPLETED DATE/TIME: 03/19/2017 10:13 pm REASON FOR STUDY: Osteomyelitis COMPARISON: 03/19/2017. TECHNIQUE: Right foot images acquired and stored on PACS. Multiplanar images include fat sensitive sequences as T1, water sensitive sequences as FST2 or STIR, cartilage sensitive sequences as FSPD, an d gradient echo sequences. LIMITATIONS: None. FINDINGS: JOINT AND BURSAE: No effusion. BONE CORTEX AND MARROW: 2nd distal phalanx has loss of fatty bone marrow on T1 imaging, abnormal enha ncement, and surrounding soft tissue edema consistent with osteomyelitis. Diffuse abnormal enhanceme nt of the 1st distal phalanx and 2nd middle phalanx, and a 2nd proximal phalangeal head. . 1.0 cm f ocal enhancement of the 1st proximal phalangeal head. Fragmentation of the 2nd distal phalanx. SOFT TISSUES: Moderate edema of the 2nd toe appear mild edema at the tip of the 1st toe. OTHER: No other significant finding. IMPRESSION: 1. Abnormal signal, abnormal enhancement, and fragmentation consistent with advanced os teomyelitis pattern of the 2nd left distal phalanx. 2. Likely [id number]-[id number]-[id number] osteomyelitis of th e 1st and 2nd digits of the right foot extending distally from the 1st and 2nd proximal phalangeal he ads. TECHNICAL DOCUMENTATION: JOB ID: [id number] [employer]- All Rights Reserved
[2017-03-20] MEDS: VANCOMYCIN HCL 1,250 MG in DEXTROSE 5%-WATER 250 ML IV SCH ×3 (02:35→19:10)
[2017-03-20 04:41] LABS: ABSOLUTE EOSINOPHILS # (AUTO) 0.1 10^3/uL (0.0-0.6); ABSOLUTE LYMPHOCYTES (AUTO) 1.4 10^3/uL (0.5-4.7); ABSOLUTE MONOCYTES (AUTO) 0.5 10^3/uL (0.1-1.4); ABSOLUTE NEUT (AUTO) 3.6 10^3/uL (1.7-8.2); BASOPHILS % (AUTO) 0.6 % (0-2); EOSINOPHILS % (AUTO) 1.4 % (0-6); HEMATOCRIT 29.3 % (37.9-51.0); HEMOGLOBIN 10.4 g/dL (13.5-17.0); HGB HCT DIFFERENCE 1.9; LYMPHOCYTES % (AUTO) 24.7 % (13-45); MEAN CORPUSCULAR HGB CONC 35.3 g/dL (32.0-36.0); MEAN CORPUSCULAR VOLUME 82 fl (80-97); MONOCYTES % (AUTO) 9.8 % (3-13); RED BLOOD COUNT 3.56 10^6/uL (4.35-5.55); RED CELL DISTRIBUTION WIDTH 12.6 % (11.5-14.0); SEGMENTED NEUTROPHILS % (AUTO) 63.5 % (42-78); WHITE BLOOD COUNT 5.6 10^3/uL (4.0-10.5)
[2017-03-20 04:53] LABS: ANION GAP 8 (5-19); BLOOD UREA NITROGEN 17 mg/dL (7-20); CALCIUM 8.9 mg/dL (8.4-10.2); CARBON DIOXIDE 24 mmol/L (22-30); CHLORIDE 105 mmol/L (98-107); CREATININE RESULT 0.88 mg/dL (0.52-1.25); GLUCOSE 256 mg/dL (75-110); MAGNESIUM 1.5 mg/dL (1.6-2.3); POTASSIUM 4.1 mmol/L (3.6-5.0); SODIUM 137.3 mmol/L (137-145)
[2017-03-20] MEDS: HEPARIN SOD (PORCINE) 5,000 UNIT/ML 1 ML SYRINGE SUBCUT SCH ×3 (05:53→21:55)
[2017-03-20] MEDS ORDERED: INSULIN LISPRO 100 UNIT/ML 3 ML VIAL SUBCUT SCH (08:00)
[2017-03-20] MEDS: DOCUSATE SODIUM 100 MG CAPSULE PO SCH ×2 (09:19→19:10)
[2017-03-20] MEDS ORDERED: LIDOCAINE 1% INJ-PF (10 MG/ML) 30 ML SDV ONE (09:43)
[2017-03-20] MEDS ORDERED: KETAMINE HCL INJ 500 MG/10 ML VIAL ONE (10:16)
[2017-03-20] MEDS ORDERED: MIDAZOLAM 2 MG/2 ML INJ ONE (10:16)
[2017-03-20] MEDS ORDERED: FENTANYL CITRATE INJ/PF 100 MCG/2 ML AMPUL ONE (10:16)
[2017-03-20] MEDS ORDERED: PROPOFOL INJ 200 MG/20 ML VIAL IV ONE (10:17)
[2017-03-20] MEDS ORDERED: ACETAMINOPHEN 100 ML IV ONE (10:17)
--- NOTE | 2017-03-20 10:49 | PDOC PROGRESS REPORT ---
Subjective Progress Note for:: 03/20/17 Subjective:: Patient denies changes today. Denies fever chills or sweats. Physical Exam Vital Signs: Temp Pulse Resp BP Pulse Ox 98.6 F 73 18 149/83 H 100 03/20/17 08:49 03/20/17 08:49 03/20/17 08:49 03/20/17 08:49 03/20/17 08:49 Intake & Output 03/19/17 03/20/17 03/21/17 06:59 06:59 06:59 Intake Total 600 Balance 600 Weight 87.5 kg Musculoskeletal exam: PRESENT: other - Right lower extremity: Notable swelling erythema of the second toe. Patient lacks sensation throughout the foot. Tracking erythema proximal to the second toe. No evidence of erythema of the great toe. Dry ulceration on the proximal phalanx and metatarsal medially. No evidence of exposed bone or drainage. Results Laboratory Results: 03/20/17 04:27 03/20/17 04:27 03/20/17 03/20/17 04:27 04:27 WBC 5.6 RBC 3.56 L Hgb 10.4 L Hct 29.3 L MCV 82 MCH 29.0 MCHC 35.3 RDW 12.6 Plt Count 157 Seg Neutrophils % 63.5 Lymphocytes % 24.7 Monocytes % 9.8 Eosinophils % 1.4 Basophils % 0.6 Absolute Neutrophils 3.6 Absolute Lymphocytes 1.4 Absolute Monocytes 0.5 Absolute Eosinophils 0.1 Absolute Basophils 0.0 Sodium 137.3 Potassium 4.1 Chloride 105 Carbon Dioxide 24 Anion Gap 8 BUN 17 Creatinine 0.88 Est GFR ( Amer) > 60 Est GFR (Non-Af Amer) > 60 Glucose 256 H Calcium 8.9 Magnesium 1.5 L Impressions: Lower Extremity MRI 03/19/17 00:00 IMPRESSION: 1. Abnormal signal, abnormal enhancement, and fragmentation consistent with advanced osteomyelitis pattern of the 2nd left distal phalanx. 2. Likely spyh-vs-akamzzee osteomyelitis of the 1st and 2nd digits of the right foot extending distally from the 1st and 2nd proximal phalangeal heads. Foot X-Ray 03/19/17 14:26 IMPRESSION: SOFT TISSUE SWELLING IN THE DISTAL 2ND TOE WITH DESTRUCTIVE CHANGES IN THE DISTAL PHALANX. FINDINGS ARE CONSISTENT WITH OSTEOMYELITIS. Assessment & Plan - Diagnosis (1) Toe osteomyelitis, right Is this a current diagnosis for this admission?: YesPlan: I have reviewed patient's MRI which demonstrates advanced osteomyelitis of the distal phalanx of the second toe. There is questionable involvement of the great toe as well. Currently on examination there is not significant findings of osteomyelitis of the great toe and I have recommended treating with IV antibiotics as for the second toe we will proceed with amputation in the operating room suite. Risks and benefits have been explained patient verbalized understanding consented to the procedure.
--- NOTE | 2017-03-20 11:25 | Operative Report ---
Operative Report PREOPERATIVE DIAGNOSIS: Osteomyelitis Right 2nd toe POSTOPERATIVE DIAGNOSIS: Same OPERATION: Amputation at DIP Joint Right 2nd Toe. I&D Great Toe SURGEON: DEBRA CHRISTINE ANESTHESIA: LMAC TISSUE REMOVED OR ALTERED: Culture COMPLICATIONS: None ESTIMATED BLOOD LOSS: Minimal PROCEDURE: Indication for above procedure: 46-year-old male with significant history for diabetes. Presented to the emergency room with increasing redness swelling and pain of his right second toe. Radiographs and MRI were then completed demonstrating osteomyelitis of the second toe. At that point we discussed treatment options including operative versus nonoperative intervention. Given the advanced osseous changes are recommended second toe amputation. Furthermore was evidence of possible early changes of the great toe. But given these minor changes I recommended against amputation or operative treatment of the great toe and we will treat this with IV antibiotics. Risks and benefits were explained to the patient patient verbalized understanding consented for the procedure. Procedure In Detail: Patient was seen and evaluated in the preoperative holding area. The RIGHT lower extremity was initialized and marked. Patient was receiving IV Abx as an inpatient. Patient was taken back to the operative room where transferred to the operative table and placed under MAC anesthesia. Once they were adequately anesthetized a nonsterile tourniquet was placed on the lower extremity. A surgical team debriefing was performed ensuring all instrumentation was available, the surgical procedure was discussed with possible concerns reviewed. The lower extremity was prepped with betadine and draped in a sterile fashion. A timeout was done identifying correct patient, procedure and extremity everyone in attendance agree with this and verbalized no concerns. The extremity was elevated the tourniquet was inflated to 300 mmHg. [place] shaped skin incision was made at the second toe at the level of the DIP joint. Sharp dissection was performed down to the capsule of the DIP joint. The DIP joint was then disarticulated. A peripheral vasculature was coagulated with electrocautery. The bone of the distal phalanx was then partially sent to pathology and to microbiology for fungal, AFB, aerobic and anaerobic cultures. Inspection of the middle phalanx demonstrated no evidence of softening or osseous changes to suggest further osteomyelitis. The cartilage of the proximal phalanx was removed to expose good cancellus bleeding tissue. The tourniquet was deflated. There was evidence of good soft tissue bleeding. Skin was closed with interrupted 3-0 nylon suture. The ulceration along the great toe there was a central area that was probed utilizing a curette. There was mild evidence of purulence at this level but no deep tracking appreciated. No softening of the underlying bone appreciated. This area was irrigated with normal saline. The wounds were dressed with Xeroform 4 x 4's and a soft bandage. Sponge counts, instrument counts, needle counts counts were correct. Patient was then awoken from anesthesia. Transferred from the operating room table to the operating room stretcher. There was no intraoperative complications patient tolerated procedure well stable to PACU. Postoperative plan: Patient may begin flatfoot partial weightbearing on his right lower extremity. We will continue vancomycin and Zosyn until cultures and sensitivities finalized. Patient will require IV antibiotics for 4 weeks.
--- NOTE | 2017-03-20 11:29 | PDOC PROGRESS REPORT ---
Subjective Progress Note for:: 03/20/17 Subjective:: Patient has no pain or fevers. He is going to the operating room today for right second toe amputation. Physical Exam Vital Signs: Temp Pulse Resp BP Pulse Ox 98.6 F 73 18 149/83 H 100 03/20/17 08:49 03/20/17 08:49 03/20/17 08:49 03/20/17 08:49 03/20/17 08:49 Intake & Output 03/19/17 03/20/17 03/21/17 06:59 06:59 06:59 Intake Total 600 Balance 600 Weight 87.5 kg GENERAL: No acute distress HEENT: Conjunctiva clear, nonicteric, moist mucous membranes, no JVD, midline trachea RESPIRATORY: Clear to auscultation bilaterally, no wheezes, no rhonchi CARDIAC: Regular rate and rhythm, no murmurs/gallops/rubs ABDOMEN: Soft, nondistended, nontender, positive bowel sounds, no rebound, no guarding EXTREMETIES: Erythema right second toe NEUROLOGIC: Alert, oriented to person/place/time, CN's grossly intact, no focal deficits SKIN: No rash, wounds PSYCH: Normal mood, normal affect Results Laboratory Results: 03/20/17 04:27 03/20/17 04:27 03/20/17 03/20/17 04:27 04:27 WBC 5.6 RBC 3.56 L Hgb 10.4 L Hct 29.3 L MCV 82 MCH 29.0 MCHC 35.3 RDW 12.6 Plt Count 157 Seg Neutrophils % 63.5 Lymphocytes % 24.7 Monocytes % 9.8 Eosinophils % 1.4 Basophils % 0.6 Absolute Neutrophils 3.6 Absolute Lymphocytes 1.4 Absolute Monocytes 0.5 Absolute Eosinophils 0.1 Absolute Basophils 0.0 Sodium 137.3 Potassium 4.1 Chloride 105 Carbon Dioxide 24 Anion Gap 8 BUN 17 Creatinine 0.88 Est GFR ( Amer) > 60 Est GFR (Non-Af Amer) > 60 Glucose 256 H Calcium 8.9 Magnesium 1.5 L Impressions: Lower Extremity MRI 03/19/17 00:00 IMPRESSION: 1. Abnormal signal, abnormal enhancement, and fragmentation consistent with advanced osteomyelitis pattern of the 2nd left distal phalanx. 2. Likely jddq-wt-gnuboovl osteomyelitis of the 1st and 2nd digits of the right foot extending distally from the 1st and 2nd proximal phalangeal heads. Foot X-Ray 03/19/17 14:26 IMPRESSION: SOFT TISSUE SWELLING IN THE DISTAL 2ND TOE WITH DESTRUCTIVE CHANGES IN THE DISTAL PHALANX. FINDINGS ARE CONSISTENT WITH OSTEOMYELITIS. Assessment & Plan - Diagnosis (1) Toe osteomyelitis, right Is this a current diagnosis for this admission?: YesPlan: Dr. Caicedo of orthopedics to amputate right second toe. Continue IV Zosyn and IV vancomycin for now. (2) Diabetes mellitus type 2 in nonobese Is this a current diagnosis for this admission?: YesPlan: Lantus 30 units daily. Sliding scale insulin. (3) Peripheral neuropathy Qualifiers: Peripheral neuropathy type: polyneuropathy associated with underlying disease Qualified Code(s): G63 - Polyneuropathy in diseases classified elsewhere Is this a current diagnosis for this admission?: Yes - Time Time Spent with patient: 25-34 minutes
[2017-03-20] MEDS ORDERED: KETOROLAC TROMETHAMINE 60 MG/2 ML SDV ONE (12:23)
[2017-03-20] MEDS ORDERED: METOCLOPRAMIDE HCL INJ/PF 10 MG/2 ML SDV ONE (12:23)
[2017-03-20] MEDS ORDERED: GLYCOPYRROLATE INJ 0.4 MG/2 ML VIAL ONE (12:23)
[2017-03-20] MEDS ORDERED: ONDANSETRON HCL INJ/PF 4 MG/2 ML SDV ONE (12:23)
[2017-03-20] MEDS ORDERED: LIDOCAINE 2% INJ-PF (20 MG/ML) 10 ML AMPUL ONE (12:23)
[2017-03-20] MEDS: INSULIN LISPRO 100 UNIT/ML 3 ML VIAL SUBCUT PRN ×2 (12:27→22:58)
[2017-03-20] MEDS ORDERED: MORPHINE SULFATE 10 MG/ML INJ IV PRN (12:30)
[2017-03-20] MEDS: INSULIN GLARGINE,HUM.REC.ANLOG 300 UNIT/3 ML INSULN.PEN SUBCUT SCH (14:43)
[2017-03-21] MEDS: PIPERACILLIN SODIUM/TAZOBACTAM 3.375 GM in NORMAL SALINE 100 ML IV SCH ×3 (00:33→13:17)
[2017-03-21] MEDS: VANCOMYCIN HCL 1,250 MG in DEXTROSE 5%-WATER 250 ML IV SCH ×2 (02:17→09:31)
[2017-03-21] MEDS: HEPARIN SOD (PORCINE) 5,000 UNIT/ML 1 ML SYRINGE SUBCUT SCH ×2 (06:10→13:18)
[2017-03-21] MEDS: DOCUSATE SODIUM 100 MG CAPSULE PO SCH (09:30)
[2017-03-21] MEDS: INSULIN LISPRO 100 UNIT/ML 3 ML VIAL SUBCUT PRN (13:19)
[2017-03-21] MEDS: INSULIN GLARGINE,HUM.REC.ANLOG 300 UNIT/3 ML INSULN.PEN SUBCUT SCH (13:29)
[2017-03-21] MEDS ORDERED: HYDRALAZINE HCL INJ/PF 20 MG/1 ML SDV IV PRN (13:34)
[2017-03-21] MEDS ORDERED: INSULIN GLARGINE,HUM.REC.ANLOG 300 UNIT/3 ML INSULN.PEN SUBCUT SCH (14:00)
[2017-03-21] MEDS ORDERED: INSULIN GLARGINE,HUM.REC.ANLOG 300 UNIT/3 ML INSULN.PEN SUBCUT ONE (14:30)
--- NOTE | 2017-03-21 14:35 | PDOC DISCHARGE SUMMARY ---
General - Admit/Disc Date/PCP Admission Date/Primary Care Provider: 03/19/17 15:45 KASIE REESE MD Discharge Date: 03/21/17 - Discharge Diagnosis (1) Toe osteomyelitis, right Is this a current diagnosis for this admission?: Yes (2) Diabetes mellitus type 2 in nonobese Is this a current diagnosis for this admission?: Yes (3) Peripheral neuropathy Is this a current diagnosis for this admission?: Yes - Additional Information Resuscitation Status: Full Code Discharge Diet: Cardiac, Diabetic Discharge Activity: Slowly Increase Activity Home Medications: Insulin Glargine,Hum.rec.anlog [Toujeo Solostar] 50 unit SQ DAILY 03/19/17 Metformin HCl [Glucophage] 1,000 mg PO Q12 03/19/17 Omeprazole 40 mg PO DAILY 03/19/17 Sertraline HCl [Zoloft 50 mg Tablet] 100 mg PO Q12 03/19/17 Clindamycin HCl [Cleocin 300 mg Capsule] 300 mg PO Q6 #120 capsule 03/21/17 Oxycodone HCl/Acetaminophen [Percocet 5-325 mg Tablet] 1 tab PO Q4HP PRN #10 tablet 03/21/17 History of Present Illness Patient complains of: Right first and second toe swelling/redness History of Present Illness: TOMÁS STANTON is a 46 year old male with past medical history of diabetes mellitus type 1, peripheral neuropathy, and vertigo; presents with increasing redness and swelling of the right 1st and 2nd toes that is worsening. He admits to chills over the last 2 days and not feeling well. He denies any pain. He states he has neuropathy so he is having no pain. He has not taken his temperature at home. He denies any prior diabetic foot infections. He states he has had increasing lightheadedness over the last 2 days. He thought he was dehydrated. 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 He denies any other symptoms. Hospital Course Hospital Course: Patient was admitted for osteomyelitis of the right second toe. He was placed on IV antibiotics during hospitalization. Orthopedics was consulted and amputated right second toe on 03/20/2017. Ideally patient would continue IV antibiotic for 4-6 weeks per orthopedic recommendation however patient is self- pay does not wish to stay in the hospital. Because of lack of pay source we cannot arrange outpatient home antibiotic regimen. He is requesting to go home today and also requesting to try a course of oral antibiotic. I have discussed this with Dr. Caicedo of orthopedics and he states that although it is not ideal we could try this and reevaluate patient as an outpatient. Patient's wound is growing group B streptococcus. I have discussed this with orthopedics and we will place patient on oral clindamycin for now. It is noted that MRI of the foot showed bony changes consistent with osteomyelitis of the first and second toe. Orthopedics said they do not clinically appreciate this in the first toe. They would like 4-6 week course of antibiotics however. Second toe as mentioned was amputated. Physical Exam Vital Signs: Temp Pulse Resp BP Pulse Ox 98.1 F 75 16 159/97 H 100 03/21/17 12:00 03/21/17 14:00 03/21/17 12:00 03/21/17 13:34 03/21/17 12:00 Intake & Output 03/20/17 03/21/17 03/22/17 06:59 06:59 06:59 Intake Total 600 1860 Output Total 120 Balance 600 1740 Weight 87.5 kg 90.5 kg GENERAL: No acute distress HEENT: Conjunctiva clear, nonicteric, moist mucous membranes, no JVD, midline trachea RESPIRATORY: Clear to auscultation bilaterally, no wheezes, no rhonchi CARDIAC: Regular rate and rhythm, no murmurs/gallops/rubs ABDOMEN: Soft, nondistended, nontender, positive bowel sounds, no rebound, no guarding EXTREMETIES: No edema, cyanosis, clubbing NEUROLOGIC: Alert, oriented to person/place/time, CN's grossly intact, no focal deficits SKIN: Dressing intact to right second toe PSYCH: Normal mood, normal affect Results Laboratory Results: 03/20/17 04:27 03/20/17 04:27 Impressions: Lower Extremity MRI 03/19/17 00:00 IMPRESSION: 1. Abnormal signal, abnormal enhancement, and fragmentation consistent with advanced osteomyelitis pattern of the 2nd left distal phalanx. 2. Likely vaot-hq-ompabnhj osteomyelitis of the 1st and 2nd digits of the right foot extending distally from the 1st and 2nd proximal phalangeal heads. Foot X-Ray 03/19/17 14:26 IMPRESSION: SOFT TISSUE SWELLING IN THE DISTAL 2ND TOE WITH DESTRUCTIVE CHANGES IN THE DISTAL PHALANX. FINDINGS ARE CONSISTENT WITH OSTEOMYELITIS. Qualifiers PATEINT BEING DISCHARGED WITH ANY OF THE FOLLOWING DIAGNOSIS?: No Plan Time Spent: Less than 30 Minutes
[2017-03-21 16:41] VITALS: BP 164/76
[2017-03-22] MEDS ORDERED: INSULIN GLARGINE,HUM.REC.ANLOG 300 UNIT/3 ML INSULN.PEN SUBCUT SCH (14:00)
== END 2017-03-21 17:03 | disposition home or self-care (01) | DRG 617 ==
LOC: ER 13:10 → EH 15:45 → 4N 18:25
PROVIDERS: ADMIT Internal Medicine; ATTEND Internal Medicine
PROC: 0J9Q0ZX Drainage of Right Foot Subcutaneous Tissue and Fascia, Open Approach, Diagnostic (ICD-10-PCS; 2017-03-20)
PROC: 0Y6R0Z3 Detachment at Right 2nd Toe, Low, Open Approach (ICD-10-PCS; principal; 2017-03-20 10:15)
DX: E11.69 Type 2 diabetes mellitus with other specified complication (principal); M86.8X7 Other osteomyelitis, ankle and foot; E11.42 Type 2 diabetes mellitus with diabetic polyneuropathy; B95.1 Streptococcus, group B, as the cause of diseases classified elsewhere; E11.65 Type 2 diabetes mellitus with hyperglycemia; E78.5 Hyperlipidemia, unspecified; J45.909 Unspecified asthma, uncomplicated; K21.9 Gastro-esophageal reflux disease without esophagitis; F32.9 Major depressive disorder, single episode, unspecified; Z79.4 Long term (current) use of insulin; Z79.899 Other long term (current) drug therapy; Z59.9 Problem related to housing and economic circumstances, unspecified; Z83.3 Family history of diabetes mellitus; Z82.49 Family history of ischemic heart disease and other diseases of the circulatory system
CPT/HCPCS: 01480; 36415; 80048; 80053; 80202; 82962; 83735; 84484; 85025; 87040; 87070; 87075; 87077; 87101; 87186; 87205; 88305; 88311; 93005; 93010; 99285; A9576; J0131; J1644; J1815; J1885; J2250; J2405; J2543; J2704; J2765; J3010; J3370; J3490; J7030; J7060

== ENCOUNTER 2017-11-18 21:29 | Inpatient (IN) | payer SELFPAY ==
[2017-11-18] MEDS ORDERED: VANCOMYCIN HCL INJ 1000 MG VIAL IV ONE (22:58)
[2017-11-18] MEDS ORDERED: PIPERACILLIN/TAZOBACTAM 4.5 GM VIAL IV ONE (23:00)
--- NOTE | 2017-11-18 23:01 | ER Document Report ---
ED Extremity Problem, Lower - General Chief Complaint: Foot Pain Stated Complaint: RIGHT FOOT PAIN Time Seen by Provider: 11/18/17 22:33 Notes: Patient is a 47-year-old male presents emergency department with a chief complaint of right lower extremity swelling, redness. Patient states that he did also develop on the bottom of his right foot on Sunday. Patient states that he was taking care of it at home but then went to a another facility in [place] on he was admitted receiving IV antibiotics for cellulitis of the right lower extremity. Patient states that he was discharged on Sunday and has been taking p.o. Keflex. Patient states he has been compliant with home medications. States that over the past 36 hours he had worsening redness and swelling of the foot. He denies any active drainage or bleeding. Denies any fevers or chills. Past medical history significant for insulin-dependent diabetes, hypertension, hyperlipidemia, peripheral neuropathy TRAVEL OUTSIDE OF THE [place] IN LAST 30 DAYS: No - Related Data Allergies/Adverse Reactions: No Known Allergies Allergy (Verified 03/19/17 13:15) Past Medical History - Social History Smoking Status: Unknown if Ever Smoked Family History: DM, Hypertension Patient has suicidal ideation: No Patient has homicidal ideation: No - Past Medical History Cardiac Medical History: Reports: Hx Hypercholesterolemia Pulmonary Medical History: Reports: Hx Asthma Endocrine Medical History: Reports: Hx Diabetes Mellitus Type 2 Renal/ Medical History: Denies: Hx Peritoneal Dialysis GI Medical History: Reports: Hx Gastroesophageal Reflux Disease Psychiatric Medical History: Reports: Hx Depression Past Surgical History: Reports: Hx Orthopedic Surgery - back, left knee - Immunizations Hx Diphtheria, Pertussis, Tetanus Vaccination: Yes Review of Systems - Review of Systems Notes: REVIEW OF SYSTEMS: CONSTITUTIONAL : Denies fever, chills, or sweats. Denies recent illness. EENT: Denies eye, ear, throat, or mouth pain or symptoms. Denies nasal or sinus congestion or discharge. Denies throat, tongue, or mouth swelling or difficulty swallowing. CARDIOVASCULAR: Denies chest pain. Denies palpitations or racing or irregular heart beat. Denies ankle edema. RESPIRATORY: Denies cough, cold, or chest congestion. Denies shortness of breath, difficulty breathing, or wheezing. MUSCULOSKELETAL: Denies any muscle spasms, difficulty walking, extremity pain SKIN: See HPI HEMATOLOGIC : Denies easy bruising or bleeding. NEUROLOGICAL: Denies confusion or altered mental status. Denies passing out or loss of consciousness. Denies dizziness or lightheadedness. Denies headache. Denies weakness or paralysis or loss of use of either side. Denies problems with gait or speech. Denies sensory loss, numbness, or tingling. Denies seizures. PSYCHIATRIC: Denies anxiety or stress. Denies depression, suicidal ideation, or homicidal ideation. ALL OTHER SYSTEMS REVIEWED AND NEGATIVE. Dictation was performed using [employer] voice recognition software Physical Exam - Vital signs Vitals: Temp Pulse BP Pulse Ox 97.6 F 81 128/73 H 97 11/18/17 21:48 11/18/17 21:48 11/18/17 21:48 11/18/17 21:48 - Notes Notes: PHYSICAL EXAM GENERAL: Alert, interacts well. HEAD: Normocephalic, atraumatic. EYES: Pupils equal, round, and reactive to light. Extraocular movements intact. ENT: Oral mucosa moist, tongue midline. NECK: Full range of motion. Supple. Trachea midline. LUNGS: Clear to auscultation bilaterally, no wheezes, rales, or rhonchi. No respiratory distress. HEART: Regular rate and rhythm. No murmurs, gallops, or rubs. ABDOMEN: Soft, nondistended, nontender. No guarding, rebound, or rigidity.. Bowel sounds present in all 4 quadrants. EXTREMITIES: Moves all 4 extremities spontaneously. No edema, radial and dorsalis pedis pulses 2/4 bilaterally. No cyanosis. NEUROLOGICAL: Alert and oriented x4. Normal speech. PSYCH: Normal affect, normal mood. SKIN: Warm, dry, normal turgor.2cm ulcer involveing underlying skin tissue without involvement of underlying fat, musculature or bones Course - Re-evaluation Re-evalutation: 11/19/17 02:32 Patient is a 47-year-old male who is hemodynamically stable, no acute distress and afebrile. CBC stable without evidence of leukocytosis or anemia. Chemistry stable without evidence of acute renal failure. X-ray without evidence changes concerning for osteomyelitis. Patient patient's presentation and physical, surgery was consulted to admit patient does not need urgent debridement of this wound but recommends IV antibiotics. Patient accepted to hospitalist for admission for IV antibiotics. Patient agreeable with plan - Vital Signs Vital signs: Temp Pulse Resp BP Pulse Ox 97.6 F 81 128/73 H 97 11/18/17 21:48 11/18/17 21:48 11/18/17 21:48 11/18/17 21:48 - Laboratory Result Diagrams: 11/18/17 23:12 11/18/17 23:12 Laboratory results interpreted by me: 11/18/17 11/18/17 23:12 23:12 RBC 3.00 L Hgb 8.9 L Hct 24.8 L BUN 41 H Glucose 152 H Total Bilirubin < 0.1 L Total Protein 5.9 L - Diagnostic Test Radiology reviewed: Image reviewed, Reports reviewed Discharge - Discharge Clinical Impression: Diabetic ulcer of right foot Qualifiers: Diabetic foot ulcer location: midfoot Diabetes mellitus type: type 2 Non- pressure ulcer stage: limited to breakdown of skin Qualified Code(s): E11.621 - Type 2 diabetes mellitus with foot ulcer Cellulitis Qualifiers: Site of cellulitis: extremity Site of cellulitis of extremity: lower extremity Laterality: right Qualified Code(s): L03.115 - Cellulitis of right lower limb Condition: Stable Disposition: ADMITTED INPATIENT Admitting Provider: Hospitalist Unit Admitted: Medical Floor
[2017-11-18 23:35] LABS: INTERNATIONAL RATION (INR) 0.92; PROTHROMBIN TIME 12.9 SEC (11.4-15.4)
[2017-11-18 23:38] LABS: ABSOLUTE EOSINOPHILS # (AUTO) 0.1 10^3/uL (0.0-0.6); ABSOLUTE LYMPHOCYTES (AUTO) 1.7 10^3/uL (0.5-4.7); ABSOLUTE MONOCYTES (AUTO) 0.7 10^3/uL (0.1-1.4); ABSOLUTE NEUT (AUTO) 3.1 10^3/uL (1.7-8.2); BASOPHILS % (AUTO) 0.4 % (0-2); EOSINOPHILS % (AUTO) 2.5 % (0-6); HEMATOCRIT 24.8 % (37.9-51.0); HEMOGLOBIN 8.9 g/dL (13.5-17.0); MEAN CORPUSCULAR HEMOGLOBIN 29.5 pg (27.0-33.4); MEAN CORPUSCULAR HGB CONC 35.8 g/dL (32.0-36.0); MEAN CORPUSCULAR VOLUME 83 fl (80-97); MONOCYTES % (AUTO) 11.7 % (3-13); PLATELET COUNT 180 10^3/uL (150-450); RED CELL DISTRIBUTION WIDTH 12.9 % (11.5-14.0); SEGMENTED NEUTROPHILS % (AUTO) 55.4 % (42-78); TOTAL CELLS COUNTED % (AUTO) 100 %; WHITE BLOOD COUNT 5.6 10^3/uL (4.0-10.5)
[2017-11-18 23:44] LABS: ALANINE AMINOTRANSFERASE 47 U/L (21-72); ALBUMIN 3.7 g/dL (3.5-5.0); ALKALINE PHOSPHATASE 122 U/L (38-126); ANION GAP 9 (5-19); ASPARTATE AMINO TRANSFERASE 31 U/L (17-59); BLOOD UREA NITROGEN 41 mg/dL (7-20); CALCIUM 9.6 mg/dL (8.4-10.2); CARBON DIOXIDE 27 mmol/L (22-30); CHLORIDE 106 mmol/L (98-107); GLUCOSE 152 mg/dL (75-110); POTASSIUM 4.6 mmol/L (3.6-5.0); TOTAL PROTEIN 5.9 g/dL (6.3-8.2)
[2017-11-18 23:45] LABS: BILIRUBIN,TOTAL < 0.1 mg/dL (0.2-1.3)
--- NOTE | 2017-11-19 00:43 | RADIOLOGY REPORT (SQ) ---
EXAM DESCRIPTION: FOOT RIGHT COMPLETE CLINICAL HISTORY: 47 years, Male, right foot cellulitis, eval for osteomyelitis COMPARISON: 8.7.17 NUMBER OF VIEWS: 3 Findings: Interval amputation of the right second digit at the prior PIP joint level. Small calcaneal enthesophytes. 0.6 cm ossicular fragmentation of the right medial malleolus. Mild osteoarthritis of the medial and lateral malleoli. Atherosclerosis. Known swelling. Bones, joints, and soft tissues of FOOT RIGHT COMPLETE appear otherwise intact. No significant effusion. No CR evident osteomyelitis. IMPRESSION: No acute findings.
[2017-11-19] MEDS ORDERED: PIPERACILLIN/TAZOBACTAM 3.375 GM VIAL IV ONE (01:59)
[2017-11-19] MEDS ORDERED: OXYCODONE-ACETAMINOPHEN 5-325 MG TABLET PO PRN (02:18)
[2017-11-19] MEDS ORDERED: VANCOMYCIN HCL 0 MG in DEXTROSE 5%-WATER 250 ML IV NR (02:30)
[2017-11-19] MEDS ORDERED: PIPERACILLIN/TAZOBACTAM 3.375 GM VIAL IV PRN (02:35)
[2017-11-19] MEDS ORDERED: VANCOMYCIN HCL INJ 1000 MG VIAL IV ONE (02:38)
[2017-11-19] MEDS ORDERED: VANCOMYCIN HCL INJ 1000 MG VIAL IV PRN (02:39)
--- NOTE | 2017-11-19 02:43 | PDOC CONSULTATION ---
Consultation Consult Date: 11/19/17 Consult reason:: ulcer right foot plantar area wiht reddish swelling of dorsum right foot History of Present Illness Admission Date/PCP: 11/19/17 Patient complains of: Ulcer right foot plantar area with redness dorsum right foot with swelling History of Present Illness: TOMÁS STANTON is a 47 year old male who removed a piece of skin and opened up a blister from his right plantar area 11/12/17. He is known diabetic with numbness of lisa below knee areas (diabetic neuropathy) and takes insulin. Diabetic since 1999. 2 days later developed fever/chills and admitted to a [place] hospital the next day for IV antibiotics and discharge today. He drove from [place] for 4 hrs to [place], [place]. Noted redness and swelling right foot on arrival to [place]. Past Medical History Cardiac Medical History: Reports: Hyperlipidema Pulmonary Medical History: Reports: Asthma Endocrine Medical History: Reports: Diabetes Mellitus Type 2 GI Medical History: Reports: Gastroesophageal Reflux Disease Psychiatric Medical History: Reports: Depression Past Surgical History Past Surgical History: Reports: Orthopedic Surgery - back, left knee Social History Smoking Status: Unknown if Ever Smoked Frequency of Alcohol Use: None Hx Recreational Drug Use: No Hx Prescription Drug Abuse: No Family History Family History: DM, Hypertension Parental Family History Reviewed: Yes - DM Children Family History Reviewed: No Sibling(s) Family History Reviewed.: No Medication/Allergy Home Medications: Insulin Glargine,Hum.rec.anlog [Toudwight Solostar] 50 unit SQ DAILY 03/19/17 Metformin HCl [Glucophage] 1,000 mg PO Q12 03/19/17 Omeprazole 40 mg PO DAILY 03/19/17 Sertraline HCl [Zoloft 50 mg Tablet] 100 mg PO Q12 03/19/17 Clindamycin HCl [Cleocin 300 mg Capsule] 300 mg PO Q6 #120 capsule 03/21/17 Oxycodone HCl/Acetaminophen [Percocet 5-325 mg Tablet] 1 tab PO Q4HP PRN #10 tablet 03/21/17 Allergies/Adverse Reactions: No Known Allergies Allergy (Verified 03/19/17 13:15) Review of Systems Review of Systems: mild pain right foot ulcer Constitutional: PRESENT: other - no chills/fever Physical Exam Vital Signs: Temp Pulse Resp BP Pulse Ox 97.6 F 81 128/73 H 97 04/08/18 21:48 11/18/17 21:48 11/18/17 21:48 11/18/17 21:48 Intake & Output 11/17/17 11/18/17 11/19/17 06:59 06:59 06:59 Weight 96.6 kg General appearance: PRESENT: mild distress Head exam: PRESENT: atraumatic Eye exam: PRESENT: conjunctiva pink Mouth exam: PRESENT: moist Neck exam: PRESENT: full ROM Respiratory exam: PRESENT: clear to auscultation lisa Cardiovascular exam: PRESENT: RRR Pulses: PRESENT: normal radial pulses Vascular exam: PRESENT: normal capillary refill GI/Abdominal exam: PRESENT: soft Rectal exam: PRESENT: deferred Neurological exam: PRESENT: other - numbness from below kees to both feet Psychiatric exam: PRESENT: appropriate affect Skin exam: PRESENT: normal color, warm Results Laboratory Results: 11/18/17 23:12 11/18/17 23:12 11/18/17 11/18/17 23:12 23:12 WBC 5.6 RBC 3.00 L Hgb 8.9 L Hct 24.8 L MCV 83 MCH 29.5 MCHC 35.8 RDW 12.9 Plt Count 180 Seg Neutrophils % 55.4 Lymphocytes % 30.0 Monocytes % 11.7 Eosinophils % 2.5 Basophils % 0.4 Absolute Neutrophils 3.1 Absolute Lymphocytes 1.7 Absolute Monocytes 0.7 Absolute Eosinophils 0.1 Absolute Basophils 0.0 Sodium 142.0 Potassium 4.6 Chloride 106 Carbon Dioxide 27 Anion Gap 9 BUN 41 H Creatinine 1.21 Est GFR ( Amer) > 60 Est GFR (Non-Af Amer) > 60 Glucose 152 H Calcium 9.6 Total Bilirubin < 0.1 L AST 31 ALT 47 Alkaline Phosphatase 122 Total Protein 5.9 L Albumin 3.7 Impressions: Foot X-Ray 11/18/17 22:57 IMPRESSION: No acute findings. Assessment & Plan - Diagnosis (1) Diabetes mellitus type 2 in nonobese Is this a current diagnosis for this admission?: Yes (2) Peripheral neuropathy Qualifiers: Qualified Code(s): G63 - Polyneuropathy in diseases classified elsewhere Is this a current diagnosis for this admission?: Yes (3) Hyperglycemia Is this a current diagnosis for this admission?: Yes - Time Time Spent: 30 to 50 Minutes - Plan Summary Plan Summary: IV antibiotic therapy elevate right leg xeroform wound dressing to right plantar ulcer daily [facility] after discharge hopefully within 48-72 hrs
[2017-11-19] MEDS ORDERED: VANCOMYCIN HCL 1,250 MG in DEXTROSE 5%-WATER 250 ML IV ONE (02:45)
[2017-11-19] MEDS ORDERED: PIPERACILLIN SODIUM/TAZOBACTAM 3.375 GM in NORMAL SALINE 100 ML IV SCH (03:00)
--- NOTE | 2017-11-19 04:06 | PDOC H&P ---
History of Present Illness Admission Date/PCP: 11/19/17 02:39 History of Present Illness: Mr. Travis is a very pleasant 47 years old male patient presented with chief complaint of swelling and ulcer of plantar aspect of his right foot. The ulcer initially started as a small blister which he punctured it and removed the overlying skin. Then his foot become tender and swollen but he denied any drainage. For this problem initially he visited the hospital in [place] where he was admitted and started on IV antibiotics and later discharged with p.o. Keflex. The last 24 hours patient started to feel chills fever and pain involving the affected foot. Patient seen at the ER by Dr. Leon who felt patient does not need debridement and he recommended management with antibiotic and wound care. Patient denied any chest pain palpitation diaphoresis, nausea, vomiting, abdominal pain or any urinary complaints. No headache, dizziness,, blurry vision or any seizure activity. Past Medical History Cardiac Medical History: Reports: Hyperlipidema Pulmonary Medical History: Reports: Asthma Neurological Medical History: Reports: Other - Peripheral neuropathy Endocrine Medical History: Reports: Diabetes Mellitus Type 2 GI Medical History: Reports: Gastroesophageal Reflux Disease Psychiatric Medical History: Reports: Depression Past Surgical History Past Surgical History: Reports: Orthopedic Surgery - back, left knee Social History Smoking Status: Unknown if Ever Smoked Frequency of Alcohol Use: None Hx Recreational Drug Use: No Hx Prescription Drug Abuse: No Family History Family History: DM, Hypertension Parental Family History Reviewed: Yes Children Family History Reviewed: Yes Sibling(s) Family History Reviewed.: Yes Medication/Allergy Home Medications: Insulin Glargine,Hum.rec.anlog [Xavier Cameron] 50 unit SQ DAILY 03/19/17 Metformin HCl [Glucophage] 1,000 mg PO Q12 03/19/17 Omeprazole 40 mg PO DAILY 03/19/17 Sertraline HCl [Zoloft 50 mg Tablet] 100 mg PO Q12 03/19/17 Clindamycin HCl [Cleocin 300 mg Capsule] 300 mg PO Q6 #120 capsule 03/21/17 Oxycodone HCl/Acetaminophen [Percocet 5-325 mg Tablet] 1 tab PO Q4HP PRN #10 tablet 03/21/17 Allergies/Adverse Reactions: No Known Allergies Allergy (Verified 03/19/17 13:15) Review of Systems Constitutional: PRESENT: as per HPI Eyes: PRESENT: as per HPI Cardiovascular: PRESENT: as per HPI Respiratory: PRESENT: as per HPI Gastrointestinal: PRESENT: as per HPI Physical Exam Vital Signs: Temp Pulse Resp BP Pulse Ox 98.2 F 77 16 159/85 H 100 11/19/17 02:42 11/19/17 02:42 11/19/17 02:42 11/19/17 02:42 11/19/17 02:42 General appearance: PRESENT: no acute distress, well-developed, well-nourished Head exam: PRESENT: atraumatic, normocephalic Mouth exam: PRESENT: moist Respiratory exam: PRESENT: clear to auscultation lisa. ABSENT: rales, rhonchi, wheezes Cardiovascular exam: PRESENT: RRR. ABSENT: diastolic murmur, rubs, systolic murmur Pulses: PRESENT: normal dorsalis pedis pul GI/Abdominal exam: PRESENT: normal bowel sounds, soft. ABSENT: distended, guarding, mass, organolmegaly, rebound, tenderness Extremities exam: PRESENT: other - Tenderness, erythema and ulcer of the right foot Results Impressions: Foot X-Ray 11/18/17 22:57 IMPRESSION: No acute findings. Assessment & Plan - Diagnosis (1) Cellulitis Qualifiers: Site of cellulitis of extremity: lower extremity Laterality: right Is this a current diagnosis for this admission?: Yes Plan: Since patient is immunocompromised from his diabetes and also the etiology organisms are most of this time polymicrobial, I will start him on vancomycin and Zosyn. Wound care (2) Diabetic ulcer of right foot Qualifiers: Diabetic foot ulcer location: midfoot Diabetes mellitus type: type 2 Non- pressure ulcer stage: limited to breakdown of skin Qualified Code(s): E11.621 - Type 2 diabetes mellitus with foot ulcer; L97.411 - Non-pressure chronic ulcer of right heel and midfoot limited to breakdown of skin; L97.411 - Non- pressure chronic ulcer of right heel and midfoot limited to breakdown of skin; L97.411 - Non-pressure chronic ulcer of right heel and midfoot limited to breakdown of skin; L97.411 - Non-pressure chronic ulcer of right heel and midfoot limited to breakdown of skin Is this a current diagnosis for this admission?: Yes Plan: As #1 (3) Diabetes mellitus type 2 in nonobese Is this a current diagnosis for this admission?: Yes Plan: We will put him on sliding scale and continue his home medication. - Time Time Spent: 30 to 50 Minutes - Inpatient Certification Medical Necessity: Need for IV Antibiotics
[2017-11-19] MEDS: LANSOPRAZOLE 30 MG TAB.RAP.DR PO SCH (07:30)
[2017-11-19] MEDS ORDERED: DEXTROSE 50%-WATER 25 GM/50 ML DISP.SYRIN IV PRN ×2 (08:20)
[2017-11-19] MEDS ORDERED: GLUCAGON,HUMAN RECOMB 1 MG INJ IM PRN (08:20)
[2017-11-19] MEDS ORDERED: DEXTROSE 40% GEL 15 GM TUBE PO PRN ×2 (08:20)
[2017-11-19] MEDS: PIPERACILLIN SODIUM/TAZOBACTAM 3.375 GM in NORMAL SALINE 100 ML IV SCH ×3 (09:56→20:14)
[2017-11-19] MEDS: INSULIN LISPRO 100 UNIT/ML 3 ML VIAL SUBCUT PRN ×3 (09:56→22:39)
[2017-11-19] MEDS: ENOXAPARIN SODIUM INJ 40 MG/0.4 ML DISP.SYRIN SUBCUT SCH (09:56)
[2017-11-19] MEDS: VANCOMYCIN HCL 1,500 MG in DEXTROSE 5%-WATER 250 ML IV SCH (12:15)
[2017-11-20] MEDS: VANCOMYCIN HCL 1,500 MG in DEXTROSE 5%-WATER 250 ML IV SCH ×3 (00:55→23:02)
[2017-11-20] MEDS: ZOLPIDEM TARTRATE 5 MG TABLET PO SCH ×2 (01:01→23:01)
[2017-11-20] MEDS: PIPERACILLIN SODIUM/TAZOBACTAM 3.375 GM in NORMAL SALINE 100 ML IV SCH ×4 (03:55→20:08)
[2017-11-20] MEDS: LANSOPRAZOLE 30 MG TAB.RAP.DR PO SCH (06:10)
--- NOTE | 2017-11-20 06:52 | PDOC PROGRESS REPORT ---
Subjective Progress Note for:: 11/19/17 Subjective:: uLis Taveras is a 47 year old male who presents with a diabetic ulcer on the plantar aspect of his R foot. He was recently treated at a hospital in [place], then discharged home. He came to the ED at [facility] because he was concerned about increased swelling in the R foot. Patient seen this morning on rounds. He is resting comfortably in bed. Open wound, circular shape, draining serous fluid, on the plantar aspect of the R foot. Patient endorses diabetic neuropathy in both feet, and states he "cannot feel a thing" in his R foot. Denies fevers or chills. Reason For Visit: RIGHT FOOT DIABETIC ULCER AND CELLULITIS Physical Exam Vital Signs: Temp Pulse Resp BP Pulse Ox 98.0 F 71 18 134/69 H 96 11/20/17 03:50 11/20/17 03:50 11/20/17 03:50 11/20/17 03:50 11/20/17 03:50 Intake & Output 11/18/17 11/19/17 11/20/17 06:59 06:59 06:59 Intake Total 510 Balance 510 Weight 95.6 kg General appearance: PRESENT: no acute distress Eye exam: PRESENT: conjunctiva pink, EOMI Mouth exam: PRESENT: moist Neck exam: PRESENT: full ROM Respiratory exam: PRESENT: symmetrical, unlabored Cardiovascular exam: PRESENT: +S1, +S2 Pulses: PRESENT: normal radial pulses, normal dorsalis pedis pul Rectal exam: PRESENT: deferred Extremities exam: PRESENT: full ROM, pedal edema - R foot, +1 edema Musculoskeletal exam: PRESENT: ambulatory, full ROM Neurological exam: PRESENT: alert, awake, oriented to person, oriented to place , oriented to time, oriented to situation Psychiatric exam: PRESENT: appropriate affect Skin exam: PRESENT: other - diabetic ulcer to R foot Results Impressions: Foot X-Ray 11/18/17 22:57 IMPRESSION: No acute findings. Status: Imported from PACS Assessment & Plan - Diagnosis (1) Diabetes Qualifiers: Diabetes mellitus complication status: with skin complications Diabetes mellitus complication detail: with foot ulcer Is this a current diagnosis for this admission?: Yes Plan: Patient endorses history of diabetes Consistent carb diet Sliding scale insulin with Humalog (2) Diabetic ulcer of right foot Qualifiers: Diabetic foot ulcer location: midfoot Diabetes mellitus type: type 2 Non- pressure ulcer stage: limited to breakdown of skin Qualified Code(s): E11.621 - Type 2 diabetes mellitus with foot ulcer; L97.411 - Non-pressure chronic ulcer of right heel and midfoot limited to breakdown of skin; L97.411 - Non- pressure chronic ulcer of right heel and midfoot limited to breakdown of skin; L97.411 - Non-pressure chronic ulcer of right heel and midfoot limited to breakdown of skin; L97.411 - Non-pressure chronic ulcer of right heel and midfoot limited to breakdown of skin Is this a current diagnosis for this admission?: Yes Plan: Open ulcer on plantar aspect of R foot Wound culture pending Afebrile, no leukocytosis Patient has already been treated with IV antibiotics at outside hospital. Currently on Vancomycin and Zosyn IV for polymicrobial coverage. Patient does not have health insurance, so he is not a candidate for outpatient IV antibiotic therapy Would likely benefit from ID consult - Time Medications reviewed and adjusted accordingly: Yes Anticipated discharge: Home - Inpatient Certification Based on my medical assessment, after consideration of the patient's comorbidities, presenting symptoms, or acuity I expect that the services needed warrant INPATIENT care.: Yes I certify that my determination is in accordance with my understanding of Medicare's requirements for reasonable and necessary INPATIENT services [42 CFR 412.3e].: Yes Medical Necessity: Need for IV Antibiotics - Plan Summary Plan Summary: Treat with antibiotics and d/c home
[2017-11-20 07:03] LABS: ABSOLUTE EOSINOPHILS # (AUTO) 0.1 10^3/uL (0.0-0.6); ABSOLUTE LYMPHOCYTES (AUTO) 1.6 10^3/uL (0.5-4.7); ABSOLUTE MONOCYTES (AUTO) 0.6 10^3/uL (0.1-1.4); ABSOLUTE NEUT (AUTO) 3.6 10^3/uL (1.7-8.2); BASOPHILS % (AUTO) 0.4 % (0-2); EOSINOPHILS % (AUTO) 2.4 % (0-6); HEMATOCRIT 25.9 % (37.9-51.0); HEMOGLOBIN 9.2 g/dL (13.5-17.0); LYMPHOCYTES % (AUTO) 26.3 % (13-45); MEAN CORPUSCULAR HEMOGLOBIN 29.1 pg (27.0-33.4); MEAN CORPUSCULAR HGB CONC 35.4 g/dL (32.0-36.0); MEAN CORPUSCULAR VOLUME 82 fl (80-97); MONOCYTES % (AUTO) 10.7 % (3-13); PLATELET COUNT 195 10^3/uL (150-450); RED BLOOD COUNT 3.15 10^6/uL (4.35-5.55); RED CELL DISTRIBUTION WIDTH 12.9 % (11.5-14.0); SEGMENTED NEUTROPHILS % (AUTO) 60.2 % (42-78); TOTAL CELLS COUNTED % (AUTO) 100 %; WHITE BLOOD COUNT 5.9 10^3/uL (4.0-10.5)
[2017-11-20 07:29] LABS: ANION GAP 12 (5-19); BLOOD UREA NITROGEN 25 mg/dL (7-20); CALCIUM 9.5 mg/dL (8.4-10.2); CARBON DIOXIDE 25 mmol/L (22-30); CHLORIDE 107 mmol/L (98-107); GLUCOSE 148 mg/dL (75-110); POTASSIUM 4.6 mmol/L (3.6-5.0); SODIUM 144.1 mmol/L (137-145)
[2017-11-20] MEDS: ENOXAPARIN SODIUM INJ 40 MG/0.4 ML DISP.SYRIN SUBCUT SCH (10:26)
[2017-11-20 12:13] LABS: VANCOMYCIN,TROUGH 18.2 ug/mL (5.0-20.0)
[2017-11-20] MEDS: INSULIN LISPRO 100 UNIT/ML 3 ML VIAL SUBCUT PRN ×3 (13:04→23:04)
--- NOTE | 2017-11-20 15:56 | PDOC PROGRESS REPORT ---
Subjective Progress Note for:: 11/20/17 Subjective:: The patient is a 47-year-old male with insulin-dependent diabetes, hypertension , hyperlipidemia, peripheral neuropathy who was admitted on 11/18/17 for a diabetic foot ulcer. The patient is seen this afternoon on rounds. He is found resting in bed comfortably on room air. He denies pain to the foot, however, states that he has significant neuropathy and normally does not feel anything to his feet. He had a second toe amputation approximately 6 months ago to the same foot. He states that the surrounding erythema and edema have improved significantly. He denies drainage. He is frustrated by his rapid readmission to hospital following discharge from an outside facility in [place]. At that time he was provided 2 days of IV antibiotics and then discharged on Keflex. Approximately 36 hours later he presented to our emergency department with worsening symptoms. He has no new questions or concerns at this time. Reason For Visit: RIGHT FOOT DIABETIC ULCER AND CELLULITIS Physical Exam Vital Signs: Temp Pulse Resp BP Pulse Ox 97.8 F 80 16 162/84 H 100 11/20/17 12:07 11/20/17 12:07 11/20/17 12:07 11/20/17 12:07 11/20/17 12:07 Intake & Output 11/19/17 11/20/17 11/21/17 06:59 06:59 06:59 Intake Total 510 Balance 510 Weight 95.6 kg General appearance: PRESENT: no acute distress, well-developed, well-nourished Head exam: PRESENT: atraumatic, normocephalic Eye exam: PRESENT: conjunctiva pink, EOMI, PERRLA. ABSENT: scleral icterus Ear exam: PRESENT: normal external ear exam Mouth exam: PRESENT: moist, tongue midline Neck exam: ABSENT: carotid bruit, JVD, lymphadenopathy, thyromegaly Respiratory exam: PRESENT: clear to auscultation lisa, symmetrical, unlabored. ABSENT: rales, rhonchi, wheezes Cardiovascular exam: PRESENT: RRR, +S1, +S2. ABSENT: diastolic murmur, rubs, systolic murmur Pulses: PRESENT: normal dorsalis pedis pul Vascular exam: PRESENT: normal capillary refill GI/Abdominal exam: PRESENT: normal bowel sounds, soft. ABSENT: distended, guarding, mass, organolmegaly, rebound, tenderness Rectal exam: PRESENT: deferred Extremities exam: PRESENT: full ROM, other - Previous amputations of second toes on feet.. ABSENT: calf tenderness, clubbing, pedal edema Neurological exam: PRESENT: alert, awake, oriented to person, oriented to place , oriented to time, oriented to situation, CN II-XII grossly intact. ABSENT: motor sensory deficit Psychiatric exam: PRESENT: appropriate affect, normal mood. ABSENT: homicidal ideation, suicidal ideation Skin exam: PRESENT: dry, warm. ABSENT: cyanosis, intact - 2 cm round, shallow, ulceration to the plantar portion of his right foot at base of second toe. Granulation tissue present. No slough, bleeding or drainage present., rash Results Laboratory Results: 11/20/17 06:22 11/20/17 06:22 11/20/17 11/20/17 06:22 06:22 WBC 5.9 RBC 3.15 L Hgb 9.2 L Hct 25.9 L MCV 82 MCH 29.1 MCHC 35.4 RDW 12.9 Plt Count 195 Seg Neutrophils % 60.2 Lymphocytes % 26.3 Monocytes % 10.7 Eosinophils % 2.4 Basophils % 0.4 Absolute Neutrophils 3.6 Absolute Lymphocytes 1.6 Absolute Monocytes 0.6 Absolute Eosinophils 0.1 Absolute Basophils 0.0 Sodium 144.1 Potassium 4.6 Chloride 107 Carbon Dioxide 25 Anion Gap 12 BUN 25 H Creatinine 1.11 Est GFR ( Amer) > 60 Est GFR (Non-Af Amer) > 60 Glucose 148 H Calcium 9.5 Impressions: Foot X-Ray 11/18/17 22:57 IMPRESSION: No acute findings. Assessment & Plan - Diagnosis (1) Diabetic ulcer of right foot Qualifiers: Diabetic foot ulcer location: midfoot Diabetes mellitus type: type 2 Non- pressure ulcer stage: limited to breakdown of skin Qualified Code(s): E11.621 - Type 2 diabetes mellitus with foot ulcer; L97.411 - Non-pressure chronic ulcer of right heel and midfoot limited to breakdown of skin; L97.411 - Non- pressure chronic ulcer of right heel and midfoot limited to breakdown of skin; L97.411 - Non-pressure chronic ulcer of right heel and midfoot limited to breakdown of skin; L97.411 - Non-pressure chronic ulcer of right heel and midfoot limited to breakdown of skin Is this a current diagnosis for this admission?: Yes Plan: Open ulcer to the plantar aspect of the right foot at the base of the second toe. Afebrile and without leukocytosis. Wound and blood cultures have no growth to date. The patient has already been treated with IV antibiotics and outside hospital and was discharged on Keflex. He presented 36 hours later with worsening erythema and edema. He has placed on vancomycin and Zosyn for polymicrobial coverage. We will request culture results from previous hospital stay, as well as, SED rate and/or C-reactive protein results. (2) Diabetes Qualifiers: Diabetes mellitus complication status: with skin complications Diabetes mellitus complication detail: with foot ulcer Is this a current diagnosis for this admission?: Yes Plan: The patient's home medication glipizide and metformin are held while inpatient. He is placed on a consistent carb diet. Accu-Cheks before meals and at bedtime with Humalog for sliding scale coverage. (3) Hypertension Is this a current diagnosis for this admission?: Yes Plan: We will resume the patient's home medications; metoprolol 25 mg p.o. every 12 hours and amlodipine 2.5 mg p.o. daily. (4) Hyperlipidemia Is this a current diagnosis for this admission?: Yes Plan: We will resume the patient's home atorvastatin therapy. - Time Time Spent with patient: 25-34 minutes Medications reviewed and adjusted accordingly: Yes Anticipated discharge: Home Within: within 72 hours - Inpatient Certification Based on my medical assessment, after consideration of the patient's comorbidities, presenting symptoms, or acuity I expect that the services needed warrant INPATIENT care.: Yes I certify that my determination is in accordance with my understanding of Medicare's requirements for reasonable and necessary INPATIENT services [42 CFR 412.3e].: Yes Medical Necessity: Need for IV Antibiotics
[2017-11-20] MEDS: SERTRALINE HCL 50 MG TABLET PO SCH (18:00)
[2017-11-20] MEDS: PENTOXIFYLLINE 400 MG TABLET.SA PO SCH (18:47)
[2017-11-20] MEDS: METOPROLOL TARTRATE 25 MG TABLET PO SCH (20:09)
[2017-11-20] MEDS ORDERED: HYDRALAZINE HCL INJ/PF 20 MG/1 ML SDV ONE (21:08)
[2017-11-20] MEDS: HYDRALAZINE HCL INJ/PF 20 MG/1 ML SDV IV PRN (21:15)
[2017-11-20] MEDS ORDERED: METOPROLOL TARTRATE 25 MG TABLET PO SCH (22:00)
[2017-11-21] MEDS: PIPERACILLIN SODIUM/TAZOBACTAM 3.375 GM in NORMAL SALINE 100 ML IV SCH ×2 (02:43→08:18)
[2017-11-21] MEDS: LANSOPRAZOLE 30 MG TAB.RAP.DR PO SCH (06:48)
[2017-11-21 07:22] LABS: ANION GAP 10 (5-19); BLOOD UREA NITROGEN 21 mg/dL (7-20); C-REACTIVE PROTEIN 21.6 mg/L (<10.0); CALCIUM 9.8 mg/dL (8.4-10.2); CARBON DIOXIDE 27 mmol/L (22-30); CHLORIDE 107 mmol/L (98-107); GLUCOSE 161 mg/dL (75-110); POTASSIUM 4.9 mmol/L (3.6-5.0); SODIUM 144.4 mmol/L (137-145)
[2017-11-21] MEDS: HYDRALAZINE HCL INJ/PF 20 MG/1 ML SDV IV PRN (08:18)
[2017-11-21] MEDS: INSULIN LISPRO 100 UNIT/ML 3 ML VIAL SUBCUT PRN ×4 (08:18→22:00)
[2017-11-21] MEDS: ENOXAPARIN SODIUM INJ 40 MG/0.4 ML DISP.SYRIN SUBCUT SCH (10:08)
[2017-11-21] MEDS: METOPROLOL TARTRATE 25 MG TABLET PO SCH ×2 (10:08→21:21)
[2017-11-21] MEDS: AMLODIPINE BESYLATE 2.5 MG TABLET PO SCH (10:08)
[2017-11-21] MEDS: PENTOXIFYLLINE 400 MG TABLET.SA PO SCH ×2 (10:09→17:57)
[2017-11-21] MEDS: ATORVASTATIN CALCIUM 10 MG TABLET PO SCH (10:09)
[2017-11-21] MEDS: VANCOMYCIN HCL 1,500 MG in DEXTROSE 5%-WATER 250 ML IV SCH (12:56)
--- NOTE | 2017-11-21 14:22 | Progress Note ---
Provider Note Provider Note: ID Consult Note Asked by Pharmacy to review the patient's chart. Mr. Taveras is a 47 yo man with pmh including diabetes with neuropathy and prior 2nd partial toe amputation at [facility] for osteomyelitis. Per notes, he presented on 11/19/17 with acute onset of R foot swelling and tenderness that followed unroofing of a blister on the plantar surface of his foot near the base of the 2nd toe last week. He went to a hospital in [place] where he received IV antibiotics for 2 days and then was given PO Keflex. However the redness and swelling in his foot worsened over the next 36h, prompting him to present to the ED in [place]. He did not have fever or chills, and he has not had fever objectively since admission. His WBC count is normal. His ESR is 73. Plain films of his foot were read as showing no acute process. His blood cultures are negative to date. A culture from the wound has shown no growth. The patient has been receiving vancomycin and Zosyn empirically. Impression/Recommendations R foot cellulitis, diabetic foot infection - The patient has no signs or symptoms of systemic illness. He was evaluated by Surgery and not felt to require debridement. Based on the notes, it appears that this area of skin breakdown is superficial and acute in onset, which is not what would typically be associated with osteomyelitis (infected large, deep , chronic ulcers). - For skin/soft tissue infections the most common pathogens are Staph. and Strep. species. Longstanding or necrotic ulcers might require treatment with broader spectrum agents that include activity against enteric organisms and/or anaerobes, but based on the description / assessments in the patient's chart, this does not appear to be the case. - If the patient is able to tolerate PO antibiotics, I think that he can be transitioned from vancomycin and Zosyn empirically to complete treatment with PO Bactrim 2 DS BID. The duration of therapy would have to be individualized based on the appearance of his cellulitis but could be in the range of 7-14 days in total. Jason Bowling MD, [facility] Infectious Diseases pager [phone]
--- NOTE | 2017-11-21 16:22 | PDOC PROGRESS REPORT ---
Subjective Progress Note for:: 11/21/17 Subjective:: The patient is a 47-year-old male with insulin-dependent diabetes, hypertension , hyperlipidemia, peripheral neuropathy who was admitted on 11/18/17 for a diabetic foot ulcer. The patient is seen this afternoon on rounds. He is found resting in bed comfortably on room air. He denies pain to the foot, however, states that he has significant neuropathy and normally does not feel anything to his feet. He had a second toe amputation approximately 6 months ago to the same foot. He reports continued improvement to appearance of foot. He denies systemic symptoms of fever, chills, body aches, nausea vomiting diarrhea. He is looking forward to his anticipated discharge to home tomorrow. He has no other questions or concerns. Reason For Visit: RIGHT FOOT DIABETIC ULCER AND CELLULITIS Physical Exam Vital Signs: Temp Pulse Resp BP Pulse Ox 98.5 F 80 16 151/83 H 98 11/21/17 15:06 11/21/17 15:06 11/21/17 15:06 11/21/17 15:06 11/21/17 15:06 Intake & Output 11/20/17 11/21/17 11/22/17 06:59 06:59 06:59 Intake Total 510 500 Balance 510 500 Weight 95.6 kg 95.3 kg General appearance: PRESENT: no acute distress, well-developed, well-nourished Head exam: PRESENT: atraumatic, normocephalic Eye exam: PRESENT: conjunctiva pink, EOMI, PERRLA. ABSENT: scleral icterus Ear exam: PRESENT: normal external ear exam Mouth exam: PRESENT: moist, tongue midline Neck exam: ABSENT: carotid bruit, JVD, lymphadenopathy, thyromegaly Respiratory exam: PRESENT: clear to auscultation lisa. ABSENT: rales, rhonchi, wheezes Cardiovascular exam: PRESENT: RRR. ABSENT: diastolic murmur, rubs, systolic murmur Pulses: PRESENT: normal dorsalis pedis pul Vascular exam: PRESENT: normal capillary refill GI/Abdominal exam: PRESENT: normal bowel sounds, soft. ABSENT: distended, guarding, mass, organolmegaly, rebound, tenderness Rectal exam: PRESENT: deferred Extremities exam: PRESENT: full ROM, other - Previous amputation of second toes to bilateral feet. ABSENT: calf tenderness, clubbing, pedal edema Neurological exam: PRESENT: alert, awake, oriented to person, oriented to place , oriented to time, oriented to situation, CN II-XII grossly intact. ABSENT: motor sensory deficit Psychiatric exam: PRESENT: appropriate affect, normal mood. ABSENT: homicidal ideation, suicidal ideation Skin exam: PRESENT: dry, warm. ABSENT: cyanosis, intact - 2 cm round, shallow, ulceration to the plantar portion of his right foot at the base of the second toe. Granulation tissue present. No slough, bleeding, or drainage present., rash Results Laboratory Results: 11/20/17 06:22 11/21/17 06:29 11/21/17 06:29 Sodium 144.4 Potassium 4.9 Chloride 107 Carbon Dioxide 27 Anion Gap 10 BUN 21 H Creatinine 1.18 Est GFR ( Amer) > 60 Est GFR (Non-Af Amer) > 60 Glucose 161 H Calcium 9.8 C-Reactive Protein 21.6 H Impressions: Foot X-Ray 11/18/17 22:57 IMPRESSION: No acute findings. Assessment & Plan - Diagnosis (1) Diabetic ulcer of right foot Qualifiers: Diabetic foot ulcer location: midfoot Diabetes mellitus type: type 2 Non- pressure ulcer stage: limited to breakdown of skin Qualified Code(s): E11.621 - Type 2 diabetes mellitus with foot ulcer; L97.411 - Non-pressure chronic ulcer of right heel and midfoot limited to breakdown of skin; L97.411 - Non- pressure chronic ulcer of right heel and midfoot limited to breakdown of skin; L97.411 - Non-pressure chronic ulcer of right heel and midfoot limited to breakdown of skin; L97.411 - Non-pressure chronic ulcer of right heel and midfoot limited to breakdown of skin Is this a current diagnosis for this admission?: Yes Plan: Open ulcer to the plantar aspect of the right foot at the base of the second toe. Afebrile and without leukocytosis. Wound and blood cultures have no growth to date. I called [facility] with the patient was previously admitted; reviewed culture results with their microbiology lab: Final blood and urine cultures have no growth. A wound culture was not obtained. As expected, the sed rate and CRP are mildly elevated. This may assist in long- term management of his chronic foot wounds. Infectious disease has been consulted with recommendations to transition the patient to p.o. Bactrim. Vancomycin and Zosyn have been discontinued; I have started the patient on Bactrim DS twice daily. Anticipate discharge to home tomorrow. (2) Diabetes Qualifiers: Diabetes mellitus complication status: with skin complications Diabetes mellitus complication detail: with foot ulcer Is this a current diagnosis for this admission?: Yes Plan: The patient's home medication glipizide and metformin are held while inpatient. He is placed on a consistent carb diet. Accu-Cheks before meals and at bedtime with Humalog for sliding scale coverage. (3) Hypertension Is this a current diagnosis for this admission?: Yes Plan: We will resume the patient's home medications; metoprolol 25 mg p.o. every 12 hours and amlodipine 2.5 mg p.o. daily. (4) Hyperlipidemia Is this a current diagnosis for this admission?: Yes Plan: We will resume the patient's home atorvastatin therapy. - Time Time Spent with patient: 15-24 minutes Anticipated discharge: Home Within: within 24 hours
[2017-11-21] MEDS: SERTRALINE HCL 50 MG TABLET PO SCH (17:57)
[2017-11-21] MEDS: SULFAMETHOXAZOLE/TRIMETHOPRIM 800-160 MG TABLET PO SCH (21:22)
[2017-11-21] MEDS: ZOLPIDEM TARTRATE 5 MG TABLET PO SCH (21:23)
[2017-11-22] MEDS: LANSOPRAZOLE 30 MG TAB.RAP.DR PO SCH (07:00)
[2017-11-22] MEDS: INSULIN LISPRO 100 UNIT/ML 3 ML VIAL SUBCUT PRN (08:30)
[2017-11-22] MEDS: ENOXAPARIN SODIUM INJ 40 MG/0.4 ML DISP.SYRIN SUBCUT SCH (09:11)
[2017-11-22] MEDS: AMLODIPINE BESYLATE 2.5 MG TABLET PO SCH (09:11)
[2017-11-22] MEDS: METOPROLOL TARTRATE 25 MG TABLET PO SCH (09:11)
[2017-11-22] MEDS: SULFAMETHOXAZOLE/TRIMETHOPRIM 800-160 MG TABLET PO SCH (09:11)
[2017-11-22] MEDS: ATORVASTATIN CALCIUM 10 MG TABLET PO SCH (09:11)
[2017-11-22] MEDS: PENTOXIFYLLINE 400 MG TABLET.SA PO SCH (09:11)
[2017-11-22 09:47] VITALS: BP 162/74
--- NOTE | 2017-11-22 16:19 | PDOC DISCHARGE SUMMARY ---
General - Admit/Disc Date/PCP Admission Date/Primary Care Provider: 11/19/17 02:39 Discharge Date: 11/22/17 - Discharge Diagnosis (1) Diabetic ulcer of right foot Is this a current diagnosis for this admission?: Yes Summary: The patient was admitted to our facility with a diabetic foot ulcer of the right foot with surrounding erythema and edema concerning for cellulitis. The patient had previously been inpatient at [facility] in [place]. At that time he was receiving IV antibiotics and was discharged on Keflex. He reports that he had been taking Keflex for approximately 36 hours when he noted the increased redness and swelling with streaking up his calf. This prompted him to seek attention at our facility. He was empirically placed on vancomycin and Zosyn. Blood and wound cultures were obtained which both have no growth to date. He was evaluated by surgery who did not feel that he required surgical intervention at this time. No indications of osteomyelitis on x-ray, and as the wound was very shallow but stable, follow-up MRI imaging was not obtained at this time. [facility] was contacted to review culture results from his admission at that time; final blood and urine cultures were both negative. A wound culture was not obtained. The patient's systemic symptoms rapidly improved with IV antibiotics. Infectious disease was consulted and made recommendations to transition to p.o. Bactrim. He was transitioned and observed overnight for recurrence of fever or erythema. At time of discharge, the patient is in stable condition, the wound appears to be improved, surrounding cellulitis has resolved. He is discharged to home with instructions to complete antibiotic course and return to his primary care provider, supervisor electrolytic tinning, or emergency department for worsening symptoms. Provided a prescription for Bactrim DS twice daily 10 days. He declines need of refills of his home medications. (2) Diabetes Is this a current diagnosis for this admission?: Yes Summary: While inpatient, the patient's oral antidiabetic medications were held. He was placed on a cardiac diet. Glucose was monitored and Humalog for sliding scale coverage was provided. The patient did not experience any significant hyperglycemic or hypoglycemic events. Upon discharge, the patient is instructed to resume his home medication regimen. (3) Hypertension Is this a current diagnosis for this admission?: Yes Summary: The patient's home medication regiment was continued with appropriate blood pressure control. (4) Hyperlipidemia Is this a current diagnosis for this admission?: Yes Summary: The patient's home statin therapy was continued. - Additional Information Discharge Diet: Diabetic Discharge Activity: Activity As Tolerated Prescriptions: Sulfamethoxazole/Trimethoprim [Septra-Ds 800-160 mg Tablet] 1 tab PO Q12 #20 tablet Home Medications: Amlodipine Besylate [Norvasc 2.5 mg Tablet] 2.5 mg PO DAILY 11/19/17 Atorvastatin Calcium [Lipitor 10 mg Tablet] 10 mg PO DAILY 11/19/17 Glipizide [Glucotrol 5 mg Tablet] 5 mg PO DAILY 11/19/17 Insulin Glargine,Hum.rec.anlog [Lantus Solostar] 40 units SQ QPM 11/19/17 Insulin Lispro [Humalog Insulin (Lispro) 100 unit/mL] 0 units SQ .PERSLIDINGSCALE 11/19/17 Metformin HCl [Glucophage] 1,000 mg PO BID 11/19/17 Metoprolol Tartrate [Lopressor 25 mg Tablet] 12.5 mg PO Q12 11/19/17 Omeprazole 40 mg PO DAILY 11/19/17 Pentoxifylline [Trental 400 mg Tablet.sa] 400 mg PO BID 11/19/17 Sertraline HCl [Zoloft 50 mg Tablet] 50 mg PO QPM 11/19/17 Terbinafine HCl [Lamisil 250 mg Tablet] 250 mg PO DAILY 11/19/17 Sulfamethoxazole/Trimethoprim [Septra-Ds 800-160 mg Tablet] 1 tab PO Q12 #20 tablet 11/22/17 History of Present Illness History of Present Illness: Per H&P by Dr. Penaloza: Mr. Travis is a very pleasant 47 years old male patient presented with chief complaint of swelling and ulcer of plantar aspect of his right foot. The ulcer initially started as a small blister which he punctured it and removed the overlying skin. Then his foot become tender and swollen but he denied any drainage. For this problem initially he visited the hospital in [place] where he was admitted and started on IV antibiotics and later discharged with p.o. Keflex. The last 24 hours patient started to feel chills fever and pain involving the affected foot. Patient seen at the ER by Dr. Leon who felt patient does not need debridement and he recommended management with antibiotic and wound care. Patient denied any chest pain palpitation diaphoresis, nausea, vomiting, abdominal pain or any urinary complaints. No headache, dizziness,, blurry vision or any seizure activity. Physical Exam Vital Signs: Temp Pulse Resp BP Pulse Ox 98.2 F 76 15 167/82 H 97 11/22/17 09:02 11/22/17 09:02 11/22/17 09:02 11/22/17 09:02 11/22/17 09:02 Intake & Output 11/21/17 11/22/17 11/23/17 06:59 06:59 06:59 Intake Total 500 Balance 500 Weight 95.3 kg 95.9 kg General appearance: PRESENT: no acute distress, cooperative, well-developed, well-nourished, other - Overweight Head exam: PRESENT: atraumatic, normocephalic Eye exam: PRESENT: conjunctiva pink, EOMI, PERRLA. ABSENT: scleral icterus Ear exam: PRESENT: normal external ear exam Mouth exam: PRESENT: moist, tongue midline Neck exam: ABSENT: carotid bruit, JVD, lymphadenopathy, thyromegaly Respiratory exam: PRESENT: clear to auscultation lisa, symmetrical, unlabored. ABSENT: rales, rhonchi, wheezes Cardiovascular exam: PRESENT: RRR, +S1, +S2. ABSENT: diastolic murmur, rubs, systolic murmur Pulses: PRESENT: normal dorsalis pedis pul Vascular exam: PRESENT: normal capillary refill GI/Abdominal exam: PRESENT: normal bowel sounds, soft. ABSENT: distended, guarding, mass, organolmegaly, rebound, tenderness Rectal exam: PRESENT: deferred Extremities exam: PRESENT: full ROM. ABSENT: calf tenderness, clubbing, pedal edema Neurological exam: PRESENT: alert, awake, oriented to person, oriented to place , oriented to time, oriented to situation, CN II-XII grossly intact. ABSENT: motor sensory deficit Psychiatric exam: PRESENT: appropriate affect, normal mood. ABSENT: homicidal ideation, suicidal ideation Skin exam: PRESENT: dry, warm. ABSENT: cyanosis, intact - Round, shallow ulceration to plantar surface of R foot at base of 2nd toe. Approx 2 cm in diameter. + granulation tissue. No erythema, edema, drainage, bleeding., rash Results Laboratory Results: 11/20/17 06:22 11/21/17 06:29 Impressions: Foot X-Ray 11/18/17 22:57 IMPRESSION: No acute findings. Qualifiers - * PATEINT BEING DISCHARGED WITH ANY OF THE FOLLOWING DIAGNOSIS?: No Plan Discharge Plan: Discharge to home with self-care. Follow-up with [facility] within 1 week. Follow-up with established outpatient supervisor electrolytic tinning within 2 weeks. Time Spent: Less than 30 Minutes
== END 2017-11-22 10:26 | disposition home or self-care (01) | DRG 638 ==
LOC: ER 21:29 → EH 11-19 02:39 → 2N 11-19 07:49
PROVIDERS: ADMIT Internal Medicine; ATTEND Internal Medicine
DX: E11.621 Type 2 diabetes mellitus with foot ulcer (principal); L03.115 Cellulitis of right lower limb; L97.411 Non-pressure chronic ulcer of right heel and midfoot limited to breakdown of skin; E11.42 Type 2 diabetes mellitus with diabetic polyneuropathy; E11.628 Type 2 diabetes mellitus with other skin complications; I10 Essential (primary) hypertension; E78.5 Hyperlipidemia, unspecified; K21.9 Gastro-esophageal reflux disease without esophagitis; J45.909 Unspecified asthma, uncomplicated; F32.9 Major depressive disorder, single episode, unspecified; Z79.84 Long term (current) use of oral hypoglycemic drugs; Z79.4 Long term (current) use of insulin
CPT/HCPCS: 36415; 80048; 80053; 80202; 82962; 85025; 85610; 85652; 85730; 86140; 87040; 87070; 87205; 96365; 99285; J0360; J1650; J1815; J2543; J3370; J3490; J7060